=== PATIENT | male | born 1940 | race Caucasian/White ===

== ENCOUNTER 2017-11-04 08:24 | Emergency (ER) | payer OTHER ==
--- OUTSIDE RECORDS SUMMARY | 2017-11-04 08:26 | XMS REPORT | Clinical Summary ---
:1940 Author Organization [facility] Address [address] [place] [address] Care Team Providers Name Role Phone Christian Mcqueen MD Primary Care Provider Allergies Active Allergy Reactions Severity Noted Date Comments Penicillin V Potassium Hives 08/09/2017 Current Medications Prescription Sig. Disp. Refills Start End Date Status Date clopidogrel Take 75 mg by Active (PLAVIX) 75 mg mouth daily. tablet potassium chloride Take 10 mEq by Active (KLOR-CON) 20 mEq mouth daily. packet sertraline (ZOLOFT) Take 100 mg by Active 100 MG tablet mouth daily. metOLazone Take 5 mg by 08/18/19 Discontinued (ZAROXOLYN) 5 MG mouth once a 18 tablet week. furosemide (LASIX) Take 80 mg by 08/18/19 Discontinued 80 mg tablet mouth 2 (two) 18 times a day. traMADol (ULTRAM) Take 1 tablet (50 20 tablet 0 08/25/19 50 mg tablet mg total) by 8 18 mouth every 6 (six) hours as needed for moderate pain for up to 20 doses. minocycline Take 1 capsule 6 capsule 0 08/21/19 (MINOCIN) 100 MG (100 mg total) by 8 18 capsule mouth 2 (two) times a day for 6 doses. carvedilol (COREG) Take 1 tablet 60 tablet 0 09/18/19 6.25 MG tablet (6.25 mg total) 8 18 by mouth 2 (two) times a day for 30 days. lisinopril Take 1 tablet (5 30 tablet 0 09/19/19 (PRINIVIL,ZESTRIL) mg total) by 8 18 5 mg tablet mouth daily for 30 days. albuterol (ACCUNEB) Take 3 mL (2.5 mg 75 mL 12 09/18/19 2.5 mg /3 mL (0.083 total) by 8 18 %) nebulizer nebulization solution every 4 (four) hours as needed for shortness of breath for up to 30 days. torsemide (DEMADEX) Take 3 tablets 180 tablet 0 09/18/19 20 MG tablet (60 mg total) by 8 18 mouth 2 (two) times a day for 30 days. aspirin 81 mg Chew 1 tablet (81 30 tablet 0 09/19/19 chewable tablet mg total) daily 8 18 for 30 days. spironolactone Take 1 tablet (25 30 tablet 0 09/19/19 (ALDACTONE) 25 MG mg total) by 8 18 tablet mouth daily for 30 days. levothyroxine Take 1 tablet (75 30 tablet 0 09/19/19 (SYNTHROID, mcg total) by 8 18 LEVOXYL) 75 mcg mouth daily for tablet 30 days. Active Problems Problem Noted Date Bladder outlet obstruction 08/18/2017 CHF (congestive heart failure) 08/09/2017 Encounters Date Type Specialty Care Team Description 08/25/2017 Office Visit Cardiology Gene Jain Chronic systolic [place], OXYACETYLENE BURNER-C congestive heart failure (Primary Dx) 08/25/2017 Hospital Encounter Transplant Richar, Acute on chronic MD Pradeep systolic heart failure 08/23/2017 Telephone Cardiology Matheus Collier RN 08/18/2017 Patient Outreach Quality Ebony Pa RN 08/18/2017 Orders Only Cardiology Shandra Collier on chronic PADMAJA Carranza systolic heart failure (Primary Dx) 08/16/2017 Anesthesia Event Procedural Sarah Beth, Cardiology Bari Hernandez CRNA 08/16/2017 Procedure Pass Procedural Cardiology 08/16/2017 Surgery Procedural Kendal Navarro Ep aicd implant Cardiology MD Sofia single dual bi vent [[id number] (CPT)] 08/13/2017 Transcribe Orders Procedural Kendal Navarro Atrial Cardiology MD Sofia fibrillation, unspecified type (Primary Dx) 08/10/2017 Procedure Pass Procedural Cardiology 08/10/2017 Surgery Procedural Kendal Navarro Cv right heart cath Cardiology MD Sofia [[id number] (CPT)] 08/10/2017 Procedure Pass Procedural Cardiology 08/09/2017 - Hospital Encounter Cardiology Bryan Cruz Acute systolic 08/18/2017 MD Edwina congestive heart failure (Primary Dx) after 11/03/2016 Social History Tobacco Use Types Packs/Day Years Used Date Never Assessed Sex Assigned at Date Recorded Not on file Last Filed Vital Signs Vital Sign Reading Time Taken Blood Pressure 115/69 08/25/2017 12:37 PM [facility] Pulse 74 08/25/2017 12:37 PM [facility] Temperature 35.9 C (96.6 F) 08/25/2017 12:37 PM [facility] Respiratory Rate 18 08/25/2017 12:37 PM [facility] Oxygen Saturation 96% 08/18/2017 3:58 PM [facility] Inhaled Oxygen Concentration - - Weight 126 kg (277 lb 6.4 oz) 08/25/2017 12:37 PM [facility] Height 172.7 cm (5' 8") 08/25/2017 12:37 PM [facility] Body Mass Index 42.18 08/25/2017 12:37 PM [facility] Plan of Treatment Health Maintenance Due Date Last Done Comments SHINGRIX VACCINE (#1) 1991 ZOSTER VACCINE 2001 PNEUMOCOCCAL POLYSACCHARIDE VACCINE AGE 65 AND OVER 2006 PNEUMOCOCCAL-13 2006 INFLUENZA VACCINE 02/09/2018 Implants Implanted Type Area Renovator Machine Operator Device Expiration Model / Identifier Date Serial / Lot Lead Joy [place] Df4 - [id number] - [id number] Cardiac Pacing N/A: BRENDA ARIAS CRM 05/23/2019 [id number] / Implanted: Qty: 1 on 08/16/2017 by Kendal Navarro Jr., MD Leads or N/A YOVANI [id number] / Electrodes or [id number] Accessories Transvenous Icd Vigilant [facility] Df4 - [id number] Defibrillator N/A: B[place] D232 / Implanted: Qty: 1 on 08/16/2017 by Kendal Navarro Jr., MD ICD Devices N/A SCIENTIFIC- CRM / Procedures Procedure Name Priority Date/Time Associated Diagnosis Comments CONSULT CARDIAC Routine 08/17/2017 1:20 PM REHAB PHASE 1 [facility] EP AICD IMPLANT Routine 08/16/2017 4:21 PM Results for this SINGLE DUAL BI VENT [facility] procedure are in the results section. CV RIGHT HEART CATH Routine 08/10/2017 3:09 PM Results for this [facility] procedure are in the results section. after 11/03/2016 Results Estimated GFR (08/25/2017 11:50 AM)Only the most recent of10 resultswithin the time period is included. Component Value Ref Range GFR Non Af Amer 73 mL/min/1.73 m2 GFR Af Amer 88 mL/min/1.73 m2 Comment: Chronic kidney disease: <60 mL/min/1.73m2 Kidney failure: <15 mL/min/1.73m2 The estimated GFR is calculated from the IDMS-traceable Modification of Diet in Renal Disease Equation. The accuracy of the calculation is poor when the creatinine is normal. Calculated values >90 mL/min/1.73m2 are not reported. This equation has not been validated in children (<18 years), women, the elderly (>70 years), or ethnic groups other than Caucasians and Americans. Specimen Performing Laboratory Plasma specimen [facility] DEPARTMENT OF PATHOLOGY AND GENOMIC MEDICINE [address] [place] [address] B natriuretic peptide (08/25/2017 11:50 AM)Only the most recent of4 resultswithin the time period is included. Component Value Ref Range BNP 558 (H) 0 - 100 pg/mL Specimen Performing Laboratory Blood [facility] OF PATHOLOGY AND [address] [address] Magnesium level (08/25/2017 11:50 AM)Only the most recent of7 resultswithin the time period is included. Component Value Ref Range Magnesium 2.1 1.6 - 2.4 mg/dL Specimen Performing Laboratory Plasma specimen [facility] DEPARTMENT OF PATHOLOGY AND [facility] MEDICINE [address] [place] [address] Basic metabolic panel (08/25/2017 11:50 AM)Only the most recent of9 resultswithin the time period is included. Component Value Ref Range Sodium 139 135 - 148 mEq/L Potassium 4.1 3.5 - 5.0 mEq/L Chloride 96 (L) 98 - 112 mEq/L CO2 33 (H) 24 - 31 mEq/L Anion gap 10 7 - 15 mEq/L Comment: Starting from October , anion gap calculation no longer incorporates potassium. Please note the change. BUN 25 (H) 8 - 23 mg/dL Creatinine 1.0 0.7 - 1.2 mg/dL Glucose 89 65 - 99 mg/dL Calcium 9.4 8.8 - 10.2 mg/dL Specimen Performing Laboratory Plasma specimen [facility] DEPARTMENT OF PATHOLOGY AND GENOMIC MEDICINE [address] [place] [id number] ECG Pre/Post Op-Tomorrow (08/16/2017 6:23 PM)Only the most recent of2 resultswithin the time period is included. Component Value Ref Range Ventricular rate 64 Atrial rate 71 QRSD interval 106 QT interval 452 QTC interval 466 QRS axis 1 67 T wave axis 162 EKG impression Atrial fibrillation with premature ventricular or aberrantly conducted complexes-Possible Inferior infarct (cited on or before 31-OCT-2014)-Nonspecific T wave abnormality- Specimen Performing Laboratory [facility] MUSE [address] [place] [address] XR Chest 1 Vw Portable (08/16/2017 5:59 PM)Only the most recent of2 resultswithin the time period is included. Specimen Performing Laboratory [facility] [address] [place] [address] Narrative EXAMINATION: Portable chest x-ray CLINICAL HISTORY:Pneumothorax COMPARISON: Most recent available chest x-ray. The heart is moderately enlarged. ICD electrode is in stable position. There are degenerative changes in the dorsal spine. IMPRESSION: 1.There is no pneumothorax. 2.No pleural fluid. 3.There is mild vascular congestion with no signs of pulmonary edema. [id number] Procedure Note Interface, Radiology Results Incoming - 08/16/2017 6:11 PM [facility] EXAMINATION: Portable chest x-ray CLINICAL HISTORY: Pneumothorax COMPARISON: Most recent available chest x-ray. The heart is moderately enlarged. ICD electrode is in stable position. There are degenerative changes in the dorsal spine. IMPRESSION: 1. There is no pneumothorax. 2. No pleural fluid. 3. There is mild vascular congestion with no signs of pulmonary edema. [id number] Cv electrophysiology procedure (08/16/2017 4:21 PM) Specimen Performing Laboratory [facility] [address] [place] [id number] Narrative TITLE: ICD implantation. PREOPERATIVE DIAGNOSES: 1.Nonischemic dilated cardiomyopathy. 2.Congestive heart failure, NYHA class III. 3.Morbid obesity. POSTOPERATIVE DIAGNOSES: 1.Nonischemic dilated cardiomyopathy. 2.Congestive heart failure, NYHA class III. 3.Morbid obesity. PROCEDURES PERFORMED: 1.Monitored anesthesia care. 2.Single chamber defibrillator placement. BRIEF HISTORY AND CLINICAL BACKGROUND: This is a 77-year-old man with the aforementioned medical problem.He was admitted to the hospital last week because of congestive heart failure and significant volume overload.Ejection fraction is 30-35% with moderate tricuspid regurgitation and secondary pulmonary hypertension.His congestive heart failure has been managed with intravenous milrinone and intravenous Lasix. He has last over 20 pounds since admission on August 09 and he is substantially feeling better.He comes now for a single chamber defibrillator placement. PROCEDURE: The patient was taken to the Electrophysiology Laboratory in the postabsorptive-nonsedated state and was placed on a fluoroscopy table. The position of the external defibrillation pads over the heart was confirmed using fluoroscopy. The chest was prepped and draped in the usual sterile fashion. Local anesthesia was achieved with 1% lidocaine.Intravenous conscious sedation using intravenous Versed, Fentanyl, and Phenergan, was provided as necessary. An upper extremity venogram was performed, and during the venogram, access to the axillary vein was achieved.A soft-tipped J-wire was advanced into the venous system.A pocket was then made below the plane of the pectoralis fascia using a scalpel, cautery, and blunt dissection.Using the [id number] technique and an introducer sheath, a defibrillation lead was advanced to the right ventricular apex and the fixation mechanism was deployed. Pacing and sensing thresholds were then evaluated.After they were found to be adequate, maximum output pacing was performed to test for diaphragmatic stimulation, and none was seen. The lead was sutured to the pectoral muscle using 0 Ethibond sutures tied over the lead collar.The pocket was visually, manually, and radiographically, inspected to ensure there were no gauze or sponges in the pocket.The pocket was then washed using an antibiotic solution. After washing was complete, gloves were changed and fresh sterile drapes were placed and a defibrillator was unpacked.The defibrillator was then attached to the lead and the set screws were tightened and the leads were gently pulled upon to ensure they were affixed within the device header.The generator and lead slack were placed into the pocket.The device was sutured to the muscle using a 0-Ethibond suture through the suture hole in the header. Defibrillation threshold testing was then performed.After the Defibrillation Safety Threshold was found to be satisfactory, the incision was closed in layers using running 0-Vicryl suture for 2 layers followed by josseline and skin adhesive. COMPLICATIONS: None. FINDINGS: 1.The right ventricular apical defibrillation lead is a [employer] Joy 4-site G, model 0296, serial #[id number].Measured R-wave 5.3 millivolt, pacing threshold 0.6 volt, current 1.0 mA, impedance 664 ohms. 2.Defibrillator is a [employer] Vigilant EL ICD model Delta D232, serial #[id number]. 3.Defibrillator safety threshold testing not performed due to inability to anticoagulate because of hematuria. CONCLUSIONS: Successful ICD placement. RECOMMENDATIONS: Once he can accept oral anticoagulation for a sufficient duration, we will bring him back for outpatient DFT assessment. Potassium level (08/16/2017 9:16 AM)Only the most recent of3 resultswithin the time period is included. Component Value Ref Range Potassium 4.0 3.5 - 5.0 mEq/L Specimen Performing Laboratory Plasma specimen [facility] DEPARTMENT OF PATHOLOGY AND GENOMIC MEDICINE [address] [place] [address] CBC with platelet and differential (08/16/2017 6:25 AM)Only the most recent of7 resultswithin the time period is included. Component Value Ref Range WBC 5.87 4.50 - 11.00 k/uL RBC 3.45 (L) 4.40 - 6.00 m/uL HGB 10.3 (L) 14.0 - 18.0 g/dL HCT 31.9 (L) 41.0 - 51.0 % MCV 92.5 82.0 - 100.0 fL MCH 29.9 27.0 - 34.0 pg MCHC 32.3 31.0 - 37.0 g/dL RDW - SD 55.8 (H) 37.0 - 55.0 fL MPV 12.1 8.8 - 13.2 fL Platelet count 92 (L) 150 - 400 k/uL Nucleated RBC 0.00 /100 WBC Neutrophils 68.7 39.0 - 69.0 % Lymphocytes 13.3 (L) 25.0 - 45.0 % Monocytes 9.7 0.0 - 10.0 % Eosinophils 6.8 (H) 0.0 - 5.0 % Basophils 1.2 (H) 0.0 - 1.0 % Immature granulocytes 0.3Comment: "Immature granulocytes" 0.0 - 1.0 % (promyelocytes, myelocytes, metamyelocytes) Specimen Performing Laboratory Blood [facility] DEPARTMENT OF PATHOLOGY AND [facility] MEDICINE [address] [place] [address] Phosphorus level (08/14/2017 4:00 PM)Only the most recent of4 resultswithin the time period is included. Component Value Ref Range Phosphorus 2.9 2.4 - 4.5 mg/dL Specimen Performing Laboratory Plasma specimen [facility] DEPARTMENT OF PATHOLOGY AND [address] [address] ECG 12 lead (08/12/2017 12:15 PM) Component Value Ref Range Ventricular rate 80 Atrial rate 66 QRSD interval 114 QT interval 506 QTC interval 583 QRS axis 1 61 T wave axis 171 EKG impression Accelerated Junctional rhythm with frequent premature ventricular complexes-Possible underlying atrial fibrillation-Possible Inferior infarct (cited on or before 31-OCT-2014)-ST & T wave abnormality , consider anterolateral ischemia-Prolonged QT-Abnormal ECG-In automated comparison with ECG of 01-NOV-2014 08:17,-QT has lengthened- Specimen Performing Laboratory [facility] MUSE [address] [place] [address] Cv labourers procedure (08/10/2017 3:09 PM) Specimen Performing Laboratory [facility] [address] [place] [address] Narrative Other significant cardiac findings of note: RA 29/30 mean 25 RV 61/15 PA 61/30 mean 40 PCWP 31/36 mean 30 Cardiac output 8.4/Cardiac Index 3.5 On milrinone. Right heart filling pressure is moderately elevated. Pulmonary hypertension is moderate. Wedge pressure is moderate. Cardiac output is increased. Biopsy performed via right internal jugular vein. Elevated PCWP and rt sided pressures Continue IV Milrinone and IV Lasix Partial thromboplastin time, activated (08/09/2017 5:05 PM) Component Value Ref Range PTT 36.0 23.0 - 36.0 sec Comment: PTT therapeutic range for unfractionated heparin is 61.0-112.0 seconds which corresponds to Anti-Xa 0.3-0.7 U/ml. Specimen Performing Laboratory Blood [facility] DEPARTMENT PATHOLOGY [address] [address] Prothrombin time with INR (08/09/2017 5:05 PM) Component Value Ref Range Prothrombin time 17.7 (H) 12.0 - 15.0 sec INR 1.4 Comment: The International Normalized Ratio (INR) is a therapeutic monitoring tool for patients who are stable on oral anticoagulant therapy. An INR of 2.0-3.0 is suggested for deep vein thrombosis/pulmonary embolism. Specimen Performing Laboratory Blood [facility] PATHOLOGY [address] [address] CBC hemogram (08/09/2017 5:05 PM) Component Value Ref Range WBC 7.03 4.50 - 11.00 k/uL RBC 3.68 (L) 4.40 - 6.00 m/uL HGB 11.0 (L) 14.0 - 18.0 g/dL HCT 34.5 (L) 41.0 - 51.0 % MCV 93.8 82.0 - 100.0 fL MCH 29.9 27.0 - 34.0 pg MCHC 31.9 31.0 - 37.0 g/dL RDW - SD 58.0 (H) 37.0 - 55.0 fL MPV 11.8 8.8 - 13.2 fL Platelet count 110 (L) 150 - 400 k/uL Nucleated RBC 0.00 /100 WBC Specimen Performing Laboratory Blood [facility] DEPARTMENT OF PATHOLOGY AND [address] [address] Thyroid stimulating hormone (08/09/2017 5:05 PM) Component Value Ref Range TSH 13.20 (H) 0.27 - 4.20 uIU/mL Specimen Performing Laboratory Plasma specimen [facility] DEPARTMENT OF PATHOLOGY AND [address] [address] T4, free (08/09/2017 5:05 PM) Component Value Ref Range T4, free 0.9 0.9 - 1.7 ng/dL Specimen Performing Laboratory Plasma specimen [facility] DEPARTMENT OF PATHOLOGY AND [address] [address] Comprehensive metabolic panel (08/09/2017 5:05 PM) Component Value Ref Range Sodium 141 135 - 148 mEq/L Potassium 3.6 3.5 - 5.0 mEq/L Chloride 97 (L) 98 - 112 mEq/L CO2 33 (H) 24 - 31 mEq/L Anion gap 11 7 - 15 mEq/L Comment: Starting from October , anion gap calculation no longer incorporates potassium. Please note the change. BUN 24 (H) 8 - 23 mg/dL Creatinine 1.2 0.7 - 1.2 mg/dL Glucose 132 (H) 65 - 99 mg/dL Calcium 9.9 8.8 - 10.2 mg/dL Protein 7.4 6.3 - 8.3 g/dL Comment: 4.6-7.0 g/dL 1 week 4.4-7.6 g/dL 7 months-1year5.1-7.3 g/dL 1-2 years5.6-7.5 g/dL >3 years6.0-8.0 g/dL 18-150 6.3-8.3 g/dL Albumin 3.1 (L) 3.5 - 5.0 g/dL A/G ratio 0.7 0.7 - 3.8 Alkaline phosphatase 69 40 - 129 U/L AST 24 10 - 50 U/L ALT 13 5 - 50 U/L Total bilirubin 1.0 0.0 - 1.2 mg/dL Specimen Performing Laboratory Plasma specimen [facility] DEPARTMENT OF PATHOLOGY AND GENOMIC MEDICINE [address] [place] [address] after 11/03/2016 Insurance Payer Benefit Plan / Group Subscriber ID Type Phone Address [facility] [employer] MEDICARE PPO/PFFS/ERS MCR xxxxxxxxx PPO Home: [phone] [place], [place] [id number]
--- NOTE | 2017-11-04 09:34 | RAD REPORT ---
EXAM DESCRIPTION: CT - Thorax Wo Con CLINICAL HISTORY: Fall, right-sided chest pain. COMPARISON: None FINDINGS: The lungs are clear. No pleural thickening or pleural effusion. No pneumothorax. Cardiomeg mark is present with pacemaker wires noted. No axillary, mediastinal or hilar adenopathy. No displaced rib fractures are seen. Mild ascites is noted in the upper abdomen. All CT scans are performed using dose optimization technique as appropriate and may include automated exposure control or mA/KV adjustment according to patient size. IMPRESSION: No acute intrathoracic finding. Mild ascites upper abdomen.
--- NOTE | 2017-11-04 09:43 | ER ---
Nurse's Notes [facility] Name: Atul Burton Sr Age: 77 yrs Sex: Male : 1940 Arrival Date: 11/04/2017 Time: 08: Bed 15 Private MD: Christian Valladares R Diagnosis: Contusion of thorax Presentation: 11/04 08:43 Presenting complaint: Patient states: R lateral aspect of chest wall pain that began 5 ss days ago when patient tripped, and fell from a standing position. Transition of care: patient was not received from another setting of care. Onset of symptoms was October 30, 2017. Initial Sepsis Screen: Does the patient meet any 2 criteria? No. Patient's initial sepsis screen is negative. Does the patient have a suspected source of infection? No. Patient's initial sepsis screen is negative. Care prior to arrival: None. 08:43 Method Of Arrival: Ambulatory ss 08:43 Acuity: KASI 4 ss Historical: - Allergies: 08:38 PENICILLINS; rb1 - Home Meds: 08:38 Albuterol-Ipratropium Inhl 2 puffs 4 times per day [Active]; aspirin 81 mg Oral chew 1 rb1 tab once daily [Active]; furosemide 80 mg Oral tab 1 tab 2 times per day [Active]; Plavix 75 mg Oral tab 1 tab once daily [Active]; potassium chloride 10 mEq oral TbER [Active]; Zoloft 100 mg Oral tab 1 tab once daily [Active]; torsemide 20 mg oral tab 3 tab twice a day [Active]; spironolactone 25 mg Oral tab 1 tab once daily [Active]; carvedilol 6.25 mg oral tab 1 tab 2 times per day [Active]; metolazone 5 mg oral tab 1 tab weekly [Active]; - PMHx: 08:38 Depression; Anxiety; Hypertension; rb1 - PSHx: 08:38 triple bypas; defibrillator; right knee; rb1 - Immunization history:: Adult Immunizations up to date. - Social history:: Smoking status: Patient/guardian denies using tobacco. Screenin:38 Abuse screen: Denies threats or abuse. Nutritional screening: No deficits noted. rb1 Tuberculosis screening: No symptoms or risk factors identified. Fall Risk Fall in past 12 months (25 points). No secondary diagnosis (0 pts). No IV (0 pts). Ambulatory Aid- None/Bed Rest/Nurse Assist (0 pts). Gait- Normal/Bed Rest/Wheelchair (0 pts) Mental Status- Oriented to own ability (0 pts). Total Marino Fall Scale indicates Low Risk Score (25-44 pts). Fall prevention measures have been instituted. Side Rails Up X 2 Placed close to Nursing Station 1:1 attendant Assigned to Pt. Frequent Obs/Assesments occuring Family Present and informed to notify staff if they need to leave bedside As available Patient and Family Educated on Fall Prevention Program and strategies. Assessment: 08:38 General: Appears uncomfortable, obese, Behavior is calm, cooperative, Denies fever, rb1 feeling ill. Pain: Complains of pain in right side of ribs Pain currently is 2 out of 10 on a pain scale. Pain began Wednesday. Neuro: Level of Consciousness is awake, alert, obeys commands, Oriented to person, place, time, situation. Cardiovascular: Capillary refill < 3 seconds is brisk in bilateral fingers. Respiratory: Airway is patent Respiratory effort is even, unlabored, Respiratory pattern is regular, symmetrical. GI: No signs and/or symptoms were reported involving the gastrointestinal system. : No signs and/or symptoms were reported regarding the genitourinary system. Derm: Bruising that is dark purple, on right side of ribs. Musculoskeletal: Range of motion: intact in all extremities. Vital Signs: 08:38 BP 132 / 77; Pulse 75; Resp 20; Temp 97.7(O); Pulse Ox 97% on R/A; Weight 127.01 kg rb1 (R); Height 5 ft. 9 in. (175.26 cm) (R); Pain 2/10; 08:38 Body Mass Index 41.35 (127.01 kg, 175.26 cm) rb1 ED Course: 08:26 Patient arrived in ED. as 08:26 Christian Valladares MD is Private Physician. as 08:38 Esperanza Haque, PADMAJA is Primary Nurse. rb1 08:38 Patient has correct armband on for positive identification. Bed in low position. Call rb1 light in reach. Side rails up X 1. Pulse ox on. NIBP on. Warm blanket given. 08:39 South Ross MD is Attending Physician. gs 08:43 Arm band placed on right wrist. ss 08:44 Triage completed. ss 09:12 CT Chest Wo Con In Process Unspecified. EDMS 09:13 CT completed. Patient tolerated procedure well. Patient moved to CT via wheelchair. jg1 Patient moved back from CT. 09:56 No provider procedures requiring assistance completed. Patient did not have IV access sv during this emergency room visit. Administered Medications: No medications were administered Outcome: 09:42 Discharge ordered by . 09:56 Discharged to home ambulatory. sv 09:56 Condition: stable 09:56 Discharge instructions given to patient, Instructed on discharge instructions, follow up and referral plans. Demonstrated understanding of instructions, follow-up care. 09:56 Patient left the ED. sv Signatures: Dispatcher [employer] EDMS Fabiana Blanco RN RN sv Rekha Hernandez jHaley White Shelby, RN RN ss Barber, Rebecca, PADMAJA RN rb1 South Ross MD MD
--- NOTE | 2017-11-04 09:43 | EDPHYS ---
Physician Documentation [facility] Name: Atul Burton Sr Age: 77 yrs Sex: Male : 1940 Arrival Date: 11/04/2017 Time: : Bed 15 Private MD: Christian Valladares R ED Physician [place] HPI: 11/04 09:14 This 77 yrs old Male presents to ER via Ambulatory with complaints of Rib gs Injury- 10/30. 09:14 The patient or guardian reports chest pain that is located primarily in the anterior gs chest wall. Onset: The symptoms/episode began/occurred 2 day(s) ago. The pain does not radiate. Associated signs and symptoms: Pertinent negatives: abdominal pain, palpitations, shortness of breath, syncope. The chest pain is described as sharp. Duration: The patient or guardian reports a single episode, that is still ongoing. Modifying factors: the symptoms are aggravated by movement, twisting torso. Severity of pain: At its worst the pain was moderate in the emergency department the pain is unchanged. The patient has not experienced similar symptoms in the past. Historical: - Allergies: 08:38 PENICILLINS; rb1 - Home Meds: 08:38 Albuterol-Ipratropium Inhl 2 puffs 4 times per day [Active]; aspirin 81 mg Oral chew 1 rb1 tab once daily [Active]; furosemide 80 mg Oral tab 1 tab 2 times per day [Active]; Plavix 75 mg Oral tab 1 tab once daily [Active]; potassium chloride 10 mEq oral TbER [Active]; Zoloft 100 mg Oral tab 1 tab once daily [Active]; torsemide 20 mg oral tab 3 tab twice a day [Active]; spironolactone 25 mg Oral tab 1 tab once daily [Active]; carvedilol 6.25 mg oral tab 1 tab 2 times per day [Active]; metolazone 5 mg oral tab 1 tab weekly [Active]; - PMHx: 08:38 Depression; Anxiety; Hypertension; rb1 - PSHx: 08:38 triple bypas; defibrillator; right knee; rb1 - Immunization history:: Adult Immunizations up to date. - Social history:: Smoking status: Patient/guardian denies using tobacco. ROS: 09:14 All other systems are negative. gs Exam: 09:14 Head/Face: Normocephalic, atraumatic. Eyes: Pupils equal round and reactive to light, gs extra-ocular motions intact. Lids and lashes normal. Conjunctiva and sclera are non-icteric and not injected. Cornea within normal limits. Periorbital areas with no swelling, redness, or edema. ENT: Nares patent. No nasal discharge, no septal abnormalities noted. Tympanic membranes are normal and external auditory canals are clear. Oropharynx with no redness, swelling, or masses, exudates, or evidence of obstruction, uvula midline. Mucous membranes moist. Neck: Trachea midline, no thyromegaly or masses palpated, and no cervical lymphadenopathy. Supple, full range of motion without nuchal rigidity, or vertebral point tenderness. No Meningismus. Cardiovascular: Regular rate and rhythm with a normal S1 and S2. No gallops, murmurs, or rubs. Normal PMI, no JVD. No pulse deficits. Respiratory: Lungs have equal breath sounds bilaterally, clear to auscultation and percussion. No rales, rhonchi or wheezes noted. No increased work of breathing, no retractions or nasal flaring. Abdomen/GI: Soft, non-tender, with normal bowel sounds. No distension or tympany. No guarding or rebound. No evidence of tenderness throughout. Back: No spinal tenderness. No costovertebral tenderness. Full range of motion. Skin: Warm, dry with normal turgor. Normal color with no rashes, no lesions, and no evidence of cellulitis. MS/ Extremity: Pulses equal, no cyanosis. Neurovascular intact. Full, normal range of motion. Neuro: Awake and alert, GCS 15, oriented to person, place, time, and situation. Cranial nerves II-XII grossly intact. Motor strength 5/5 in all extremities. Sensory grossly intact. Cerebellar exam normal. Normal gait. 09:14 Constitutional: The patient appears alert, awake. 09:14 Chest/axilla: Inspection: ecchymosis, that is moderate, of the right lateral anterior chest Palpation: tenderness, that is moderate, that totally reproduces the patient's complaints. Vital Signs: 08:38 BP 132 / 77; Pulse 75; Resp 20; Temp 97.7(O); Pulse Ox 97% on R/A; Weight 127.01 kg rb1 (R); Height 5 ft. 9 in. (175.26 cm) (R); Pain 08/21; 08:38 Body Mass Index 41.35 (127.01 kg, 175.26 cm) rb1 MDM: 08:51 Patient medically screened. 09:14 Differential diagnosis: Chest Wall Contusion Chest Wall Injury Rib Fracture. Data gs reviewed: vital signs, nurses notes. Response to treatment: the patient's symptoms have mildly improved after treatment. 11/04 08:52 Order name: CT Chest Wo Con; Complete Time: 09:40 gs Administered Medications: No medications were administered Disposition: 11/04/17 09:42 Discharged to Home. Impression: Contusion of thorax. - Condition is Stable. - Discharge Instructions: Chest Contusion. - Medication Reconciliation Form, Thank You Letter, Antibiotic Education, Prescription Opioid Use form. - Follow up: Private Physician; When: 2 - 3 days; Reason: Re-evaluation by your physician. Signatures: Dispatcher [employer] Fabiana Crockett RN RN sv Smirch, Shelby, RN RN ss Barber, Rebecca, RN RN rb1 [place] MD MD
[2017-11-04 10:04] VITALS: BP 132/77; TEMP 97.7; O2SAT 97
== END 2017-11-04 09:56 | disposition home or self-care (01) ==
LOC: ER 08:24
DX: S20.20XA Contusion of thorax, unspecified, initial encounter (principal); W01.0XXA Fall on same level from slipping, tripping and stumbling without subsequent striking against object, initial encounter; Y93.9 Activity, unspecified; Y92.9 Unspecified place or not applicable; I10 Essential (primary) hypertension; F41.9 Anxiety disorder, unspecified; F32.9 Major depressive disorder, single episode, unspecified; Z88.0 Allergy status to penicillin; Z79.01 Long term (current) use of anticoagulants; Z79.82 Long term (current) use of aspirin
CPT/HCPCS: 71250; 99284

== ENCOUNTER 2018-01-20 13:14 | Observation (INO) | payer OTHER ==
--- OUTSIDE RECORDS SUMMARY | 2018-01-20 13:48 | XMS REPORT | Clinical Summary ---
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[place], [employer] MAIL CLERK-C congestive heart failure (Primary Dx) 08/25/2017 Hospital [...] Cardiology MD Sofia single dual bi vent [[id number] (CPT)] 08/13/2017 Transcribe Orders Procedural Kendal Navarro Atrial Cardiology MD Sofia fibrillation, unspecified type (Primary Dx) 08/10/2017 Procedure Pass Procedural Cardiology 08/10/2017 Surgery Procedural Kendal Navarro Cv right heart cath Cardiology MD Sofia [[id number] (CPT)] 08/10/2017 Procedure Pass Procedural Cardiology 08/09/2017 - Hospital Encounter Cardiology Bryan Cruz Acute systolic 08/18/2017 MD Edwina congestive heart failure (Primary Dx) after 01/19/2017 Social History Tobacco Use Types Packs/Day Years Used Date Never Assessed Sex Assigned at Date Recorded Not on file Last Filed Vital Signs Vital Sign Reading Time Taken Blood Pressure 115/69 08/25/2017 12:37 PM [employer] Pulse 74 08/25/2017 12:37 PM [employer] Temperature 35.9 C (96.6 F) 08/25/2017 12:37 PM [employer] Respiratory Rate 18 08/25/2017 12:37 PM [employer] Oxygen Saturation 96% 08/18/2017 3:58 PM [employer] Inhaled Oxygen Concentration - - Weight 126 kg (277 lb 6.4 oz) 08/25/2017 12:37 PM [employer] Height 172.7 cm (5' 8") 08/25/2017 12:37 PM [employer] Body Mass Index 42.18 08/25/2017 12:37 PM [employer] Plan of Treatment Health Maintenance Due Date Last Done Comments SHINGRIX VACCINE (#1) 1991 ZOSTER VACCINE 2001 PNEUMOCOCCAL POLYSACCHARIDE VACCINE AGE 65 AND OVER 2006 PNEUMOCOCCAL-13 2006 INFLUENZA VACCINE 02/09/2018 Implants Implanted Type Area Event Planning Intern Device Expiration Model / Identifier Date Serial / Lot Lead [place] Df4 - [id number] - [id number] Cardiac Pacing N/A: BRENDA [employer] 05/23/2019 [id number] / Implanted: Qty: 1 on 08/16/2017 by Kendal Navarro Jr., MD Leads or N/A YOVANI [id number] / Electrodes or [id number] Accessories Transvenous Icd Vigilant [facility] Df4 - [id number] Defibrillator N/A: BOSTON [id number] / Implanted: Qty: 1 on 08/16/2017 by Kendal Navarro Jr., MD ICD Devices N/A SCIENTIFIC- CRM / Procedures Procedure Name Priority Date/Time Associated Comments Diagnosis ESTIMATED GFR STAT 08/25/2017 11:50 Results for this AM [employer] procedure are in the results section. MAGNESIUM LEVEL STAT 08/25/2017 11:50 Acute on chronic Results for this AM [employer] systolic heart procedure are in failure the results section. B NATRIURETIC PEPTIDE STAT 08/25/2017 11:50 Acute on chronic Results for this AM [employer] systolic heart procedure are in failure the results section. BASIC METABOLIC PANEL STAT 08/25/2017 11:50 Acute on chronic Results for this AM [employer] systolic heart procedure are in failure the results section. CONSULT CARDIAC REHAB Routine 08/17/2017 1:20 PHASE 1 PM [employer] ESTIMATED GFR Routine 08/17/2017 4:50 Results for this AM [employer] procedure are in the results section. B NATRIURETIC PEPTIDE Routine 08/17/2017 4:50 Results for this AM [employer] procedure are in the results section. MAGNESIUM LEVEL Routine 08/17/2017 4:50 Results for this AM [employer] procedure are in the results section. BASIC METABOLIC PANEL Routine 08/17/2017 4:50 Results for this AM [employer] procedure are in the results section. ECG PRE/POST OP Routine 08/16/2017 6:23 Results for this PM [employer] procedure are in the results section. XR CHEST 1 VW PORTABLE Routine 08/16/2017 5:59 Results for this PM [employer] procedure are in the results section. EP AICD IMPLANT SINGLE Routine 08/16/2017 4:21 Results for this DUAL BI VENT PM [employer] procedure are in the results section. ECG PRE/POST OP STAT 08/16/2017 2:53 Results for this PM [employer] procedure are in the results section. POTASSIUM LEVEL Routine 08/16/2017 9:16 Results for this AM [employer] procedure are in the results section. HC COMPLETE BLD COUNT Routine 08/16/2017 6:25 Results for this W/AUTO DIFF AM [employer] procedure are in the results section. ESTIMATED GFR Routine 08/16/2017 4:00 Results for this AM [employer] procedure are in the results section. MAGNESIUM LEVEL Routine 08/16/2017 4:00 Results for this AM [employer] procedure are in the results section. BASIC METABOLIC PANEL Routine 08/16/2017 4:00 Results for this AM [employer] procedure are in the results section. HC COMPLETE BLD COUNT Routine 08/15/2017 5:14 Results for this W/AUTO DIFF AM [employer] procedure are in the results section. B NATRIURETIC PEPTIDE Routine 08/15/2017 5:11 Results for this AM [employer] procedure are in the results section. ESTIMATED GFR Routine 08/15/2017 4:00 Results for this AM [employer] procedure are in the results section. MAGNESIUM LEVEL Routine 08/15/2017 4:00 Results for this AM [employer] procedure are in the results section. BASIC METABOLIC PANEL Routine 08/15/2017 4:00 Results for this AM [employer] procedure are in the results section. PHOSPHORUS LEVEL Timed 08/14/2017 4:00 Results for this PM [employer] procedure are in the results section. POTASSIUM LEVEL Timed 08/14/2017 4:00 Results for this PM [employer] procedure are in the results section. HC COMPLETE BLD COUNT Routine 08/14/2017 5:30 Results for this W/AUTO DIFF AM [employer] procedure are in the results section. ESTIMATED GFR Routine 08/14/2017 4:00 Results for this AM [employer] procedure are in the results section. PHOSPHORUS LEVEL Routine 08/14/2017 4:00 Results for this AM [employer] procedure are in the results section. MAGNESIUM LEVEL Routine 08/14/2017 4:00 Results for this AM [employer] procedure are in the results section. BASIC METABOLIC PANEL Routine 08/14/2017 4:00 Results for this AM [employer] procedure are in the results section. HC COMPLETE BLD COUNT Routine 08/13/2017 5:25 Results for this W/AUTO DIFF AM [employer] procedure are in the results section. ESTIMATED GFR Routine 08/13/2017 4:00 Results for this AM [employer] procedure are in the results section. PHOSPHORUS LEVEL Routine 08/13/2017 4:00 Results for this AM [employer] procedure are in the results section. MAGNESIUM LEVEL Routine 08/13/2017 4:00 Results for this AM [employer] procedure are in the results section. BASIC METABOLIC PANEL Routine 08/13/2017 4:00 Results for this AM [employer] procedure are in the results section. ECG 12-LEAD Routine 08/12/2017 12:15 Results for this PM [employer] procedure are in the results section. HC COMPLETE BLD COUNT Routine 08/12/2017 5:18 Results for this W/AUTO DIFF AM [employer] procedure are in the results section. ESTIMATED GFR Routine 08/12/2017 4:00 Results for this AM [employer] procedure are in the results section. BASIC METABOLIC PANEL Routine 08/12/2017 4:00 Results for this AM [employer] procedure are in the results section. POTASSIUM LEVEL Routine 08/11/2017 3:55 Results for this PM [employer] procedure are in the results section. HC COMPLETE BLD COUNT Routine 08/11/2017 5:58 Results for this W/AUTO DIFF AM [employer] procedure are in the results section. ESTIMATED GFR Routine 08/11/2017 5:58 Results for this AM [employer] procedure are in the results section. BASIC METABOLIC PANEL Routine 08/11/2017 5:58 Results for this AM [employer] procedure are in the results section. CV RIGHT HEART CATH Routine 08/10/2017 3:09 Results for this PM [employer] procedure are in the results section. HC COMPLETE BLD COUNT Routine 08/10/2017 5:30 Results for this W/AUTO DIFF AM [employer] procedure are in the results section. ESTIMATED GFR Routine 08/10/2017 4:00 Results for this AM [employer] procedure are in the results section. PHOSPHORUS LEVEL Routine 08/10/2017 4:00 Results for this AM [employer] procedure are in the results section. MAGNESIUM LEVEL Routine 08/10/2017 4:00 Results for this AM [employer] procedure are in the results section. BASIC METABOLIC PANEL Routine 08/10/2017 4:00 Results for this AM [employer] procedure are in the results section. XR CHEST 1 VW PORTABLE Routine 08/09/2017 8:40 Results for this PM [employer] procedure are in the results section. PROTHROMBIN TIME WITH Routine 08/09/2017 5:05 Results for this INR PM [employer] procedure are in the results section. PARTIAL THROMBOPLASTIN Routine 08/09/2017 5:05 Results for this TIME (PTT) PM [employer] procedure are in the results section. ESTIMATED GFR Routine 08/09/2017 5:05 Results for this PM [employer] procedure are in the results section. CBC HEMOGRAM Routine 08/09/2017 5:05 Results for this PM [employer] procedure are in the results section. THYROID STIMULATING Routine 08/09/2017 5:05 Results for this HORMONE PM [employer] procedure are in the results section. T4, FREE Routine 08/09/2017 5:05 Results for this PM [employer] procedure are in the results section. COMPREHENSIVE METABOLIC Routine 08/09/2017 5:05 Results for this PANEL PM [employer] procedure are in the results section. B NATRIURETIC PEPTIDE Routine 08/09/2017 5:05 Results for this PM [employer] procedure are in the results section. after 01/19/2017 Results Estimated GFR (08/25/2017 11:50 AM)Only the most recent of10 resultswithin the time period is included. GFR Non Af Amer 73 mL/min/1.73 m2 [facility] DEPARTMENT OF PATHOLOGY AND GENOMIC MEDICINE GFR Af Amer 88 mL/min/1.73 m2 [facility] DEPARTMENT OF Comment: PATHOLOGY AND GENOMIC Chronic kidney disease: <60 mL/min/1.73m2 MEDICINE Kidney failure: <15 mL/min/1.73m2 The estimated GFR is calculated from the IDMS-traceable Modification of Diet in Renal Disease Equation. The accuracy of the calculation is poor when the creatinine is normal. Calculated values >90 mL/min/1.73m2 are not reported. This equation has not been validated in children (<18 years), women, the elderly (>70 years), or ethnic groups other than Caucasians and Americans. Specimen Plasma specimen Performing Organization Address City/[facility] Phone Number [facility] DEPARTMENT OF PATHOLOGY AND [address] [place] [address] B natriuretic peptide (08/25/2017 11:50 AM)Only the most recent of4 resultswithin the time period is included. BNP 558 (H) 0 - 100 pg/mL [facility] DEPARTMENT OF PATHOLOGY AND [email or web address] [facility] Specimen Blood Performing Organization Address [facility] Phone Number [facility] DEPARTMENT OF [facility] AND [address] [place] [address] Magnesium level (08/25/2017 11:50 AM)Only the most recent of7 resultswithin the time period is included. Magnesium 2.1 1.6 - 2.4 mg/dL [facility] DEPARTMENT OF PATHOLOGY AND [email or web address] MEDICINE Specimen Plasma specimen Performing Organization Address [facility] Phone Number [facility] DEPARTMENT OF PATHOLOGY AND [address] [place] [address] Basic metabolic panel (08/25/2017 11:50 AM)Only the most recent of9 resultswithin the time period is included. Sodium 139 135 - 148 mEq/L [facility] DEPARTMENT OF PATHOLOGY AND GENOMIC MEDICINE Potassium 4.1 3.5 - 5.0 mEq/L [facility] DEPARTMENT OF PATHOLOGY AND GENOMIC MEDICINE Chloride 96 (L) 98 - 112 mEq/L [facility] DEPARTMENT OF PATHOLOGY AND GENOMIC MEDICINE CO2 33 (H) 24 - 31 mEq/L [facility] DEPARTMENT OF PATHOLOGY AND GENOMIC MEDICINE Anion gap 10 7 - 15 mEq/L [facility] DEPARTMENT OF PATHOLOGY Comment: [facility] Starting from October , anion gap calculation no longer incorporates potassium. Please note the change. BUN 25 (H) 8 - 23 mg/dL [facility] DEPARTMENT OF PATHOLOGY AND GENOMIC MEDICINE Creatinine 1.0 0.7 - 1.2 mg/dL [facility] DEPARTMENT OF PATHOLOGY AND GENOMIC MEDICINE Glucose 89 65 - 99 mg/dL [facility] DEPARTMENT OF PATHOLOGY AND GENOMIC MEDICINE Calcium 9.4 8.8 - 10.2 mg/dL [facility] DEPARTMENT OF PATHOLOGY AND GENOMIC MEDICINE Specimen Plasma specimen Performing Organization Address [facility] Phone Number [facility] DEPARTMENT OF PATHOLOGY AND [address] [place] [phone] GENOMIC MEDICINE ECG Pre/Post Op-Tomorrow (08/16/2017 6:23 PM)Only the most recent of2 resultswithin the time period is included. Ventricular rate 64 [facility] Atrial rate 71 [facility] QRSD interval 106 [facility] QT interval 452 [facility] QTC interval 466 [facility] QRS axis 1 67 [facility] T wave axis 162 [facility] EKG impression Atrial fibrillation with premature [facility] ventricular or aberrantly conducted complexes-Possible Inferior infarct (cited on or before 31-OCT-2014)-Nonspecific T wave abnormality- Performing Organization Address [facility] Phone Number [facility] [address] [place] [address] XR Chest 1 Vw Portable (08/16/2017 5:59 PM)Only the most recent of2 resultswithin the time period is included. Narrative Performed At EXAMINATION: Portable chest x-ray [facility] CLINICAL HISTORY:Pneumothorax COMPARISON: Most recent available chest x-ray. The heart is moderately enlarged. ICD electrode is in stable position. There are degenerative changes in the dorsal spine. IMPRESSION: 1.There is no pneumothorax. 2.No pleural fluid. 3.There is mild vascular congestion with no signs of pulmonary edema. [id number] Procedure Note Interface, Radiology Results Incoming - 08/16/2017 6:11 PM [employer] EXAMINATION: Portable chest x-ray CLINICAL HISTORY: Pneumothorax COMPARISON: Most recent available chest x-ray. The heart is moderately enlarged. ICD electrode is in stable position. There are degenerative changes in the dorsal spine. IMPRESSION: 1. There is no pneumothorax. 2. No pleural fluid. 3. There is mild vascular congestion with no signs of pulmonary edema. [id number] Performing Organization Address [facility] Phone Number [facility] [address] [place] [address] Cv electrophysiology procedure (08/16/2017 4:21 PM) Narrative Performed At TITLE: [facility] ICD implantation. PREOPERATIVE DIAGNOSES: 1.Nonischemic dilated cardiomyopathy. [...] a scalpel, cautery, and blunt dissection.Using the [id number] technique and an introducer sheath, a defibrillation [...] right ventricular apical defibrillation lead is a [employer] [place] 4-site G, model 0296, serial #[id number].Measured R-wave 5.3 millivolt, pacing threshold 0.6 volt, current 1.0 mA, impedance 664 ohms. 2.Defibrillator is a [employer] Vigilant EL ICD model Delta D232, serial #[id number]. 3.Defibrillator safety threshold testing not performed due to inability to anticoagulate because of hematuria. CONCLUSIONS: Successful ICD placement. RECOMMENDATIONS: Once he can accept oral anticoagulation for a sufficient duration, we will bring him back for outpatient DFT assessment. Performing Organization Address City/[facility] Phone Number [facility] [address] [place] [address] Potassium level (08/16/2017 9:16 AM)Only the most recent of3 resultswithin the time period is included. Potassium 4.0 3.5 - 5.0 mEq/L [facility] DEPARTMENT OF PATHOLOGY AND GENOMIC MEDICINE Specimen Plasma specimen Performing Organization Address City/[facility]/Zipcode Phone Number [facility] DEPARTMENT OF PATHOLOGY AND [address] [place] [phone] [facility] CBC with platelet and differential (08/16/2017 6:25 AM)Only the most recent of7 resultswithin the time period is included. WBC 5.87 4.50 - 11.00 k/uL [facility] DEPARTMENT OF PATHOLOGY AND GENOMIC MEDICINE RBC 3.45 (L) 4.40 - 6.00 m/uL [facility] DEPARTMENT OF PATHOLOGY AND GENOMIC MEDICINE HGB 10.3 (L) 14.0 - 18.0 g/dL [facility] DEPARTMENT OF PATHOLOGY AND GENOMIC MEDICINE HCT 31.9 (L) 41.0 - 51.0 % [facility] DEPARTMENT OF PATHOLOGY AND GENOMIC MEDICINE MCV 92.5 82.0 - 100.0 fL [facility] DEPARTMENT OF PATHOLOGY AND GENOMIC MEDICINE MCH 29.9 27.0 - 34.0 pg [facility] DEPARTMENT OF PATHOLOGY AND GENOMIC MEDICINE MCHC 32.3 31.0 - 37.0 g/dL [facility] DEPARTMENT OF PATHOLOGY AND GENOMIC MEDICINE RDW - SD 55.8 (H) 37.0 - 55.0 fL [facility] DEPARTMENT OF PATHOLOGY AND GENOMIC MEDICINE MPV 12.1 8.8 - 13.2 fL [facility] DEPARTMENT OF PATHOLOGY AND GENOMIC MEDICINE Platelet count 92 (L) 150 - 400 k/uL [facility] DEPARTMENT OF PATHOLOGY AND GENOMIC MEDICINE Nucleated RBC 0.00 /100 WBC [facility] DEPARTMENT OF PATHOLOGY AND GENOMIC MEDICINE Neutrophils 68.7 39.0 - 69.0 % [facility] DEPARTMENT OF PATHOLOGY AND GENOMIC MEDICINE Lymphocytes 13.3 (L) 25.0 - 45.0 % [facility] DEPARTMENT OF PATHOLOGY AND GENOMIC MEDICINE Monocytes 9.7 0.0 - 10.0 % [facility] DEPARTMENT OF PATHOLOGY AND GENOMIC MEDICINE Eosinophils 6.8 (H) 0.0 - 5.0 % [facility] DEPARTMENT OF PATHOLOGY AND GENOMIC MEDICINE Basophils 1.2 (H) 0.0 - 1.0 % [facility] DEPARTMENT OF PATHOLOGY AND GENOMIC MEDICINE Immature granulocytes 0.3Comment: 0.0 - 1.0 % [facility] DEPARTMENT OF "Immature PATHOLOGY AND GENOMIC granulocytes" MEDICINE (promyelocytes, myelocytes, metamyelocytes) Specimen Blood Performing Organization Address City/[facility] Phone Number [facility] DEPARTMENT OF PATHOLOGY AND [address] [place] [phone] GENOMIC MEDICINE Phosphorus level (08/14/2017 4:00 PM)Only the most recent of4 resultswithin the time period is included. Phosphorus 2.9 2.4 - 4.5 mg/dL [facility] DEPARTMENT OF PATHOLOGY AND GENOMIC MEDICINE Specimen Plasma specimen Performing Organization Address City/[facility]/Zipcode Phone Number [facility] DEPARTMENT PATHOLOGY AND [address] [place] [phone] GENOMIC MEDICINE ECG 12 lead (08/12/2017 12:15 PM) Ventricular rate 80 [facility] Atrial rate 66 [facility] QRSD interval 114 [facility] QT interval 506 [facility] QTC interval 583 [facility] QRS axis 1 61 [facility] T wave axis 171 [facility] EKG impression Accelerated Junctional rhythm with frequent premature ventricular complexes-Possible underlying atrial fibrillation-Possible Inferior infarct (cited on or before 31-OCT-2014)-ST & T wave abnormality [facility] , consider anterolateral ischemia-Prolonged QT-Abnormal ECG-In automated comparison with ECG of 01-NOV-2014 08:17,-QT has lengthened- Performing Organization Address City/[facility] Phone Number [facility] [address] [place] [address] Cv medical lab tech instructor procedure (08/10/2017 3:09 PM) Narrative Performed At [facility] Other significant cardiac findings of note: RA [...] pressures Continue IV Milrinone and IV Lasix Performing Organization Address [facility] Phone Number [facility] [address] [place] [address] Partial thromboplastin time, activated (08/09/2017 5:05 PM) PTT 36.0 23.0 - 36.0 sec [facility] DEPARTMENT OF PATHOLOGY Comment: AND GENOMIC MEDICINE PTT therapeutic range for unfractionated heparin is 61.0-112.0 seconds which corresponds to Anti-Xa 0.3-0.7 U/ml. Specimen Blood Performing Organization Address [facility] Phone Number [facility] DEPARTMENT OF PATHOLOGY AND [address] [place] [phone] GENOMIC MEDICINE Prothrombin time with INR (08/09/2017 5:05 PM) Prothrombin time 17.7 (H) 12.0 - 15.0 sec [facility] DEPARTMENT OF PATHOLOGY AND GENOMIC MEDICINE INR 1.4 [facility] DEPARTMENT OF Comment: PATHOLOGY AND GENOMIC The International Normalized Ratio (INR) is a therapeutic MEDICINE monitoring tool for patients who are stable on oral anticoagulant therapy. An INR of 2.0-3.0 is suggested for deep vein thrombosis/pulmonary embolism. Specimen Blood Performing Organization Address [facility]/State/[facility] Phone Number [facility] DEPARTMENT OF PATHOLOGY AND [address] [place] [address] CBC hemogram (08/09/2017 5:05 PM) WBC 7.03 4.50 - 11.00 k/uL [facility] DEPARTMENT OF PATHOLOGY AND GENOMIC MEDICINE RBC 3.68 (L) 4.40 - 6.00 m/uL [facility] DEPARTMENT OF PATHOLOGY AND GENOMIC MEDICINE HGB 11.0 (L) 14.0 - 18.0 g/dL [facility] DEPARTMENT OF PATHOLOGY AND GENOMIC MEDICINE HCT 34.5 (L) 41.0 - 51.0 % [facility] DEPARTMENT OF PATHOLOGY AND GENOMIC MEDICINE MCV 93.8 82.0 - 100.0 fL [facility] DEPARTMENT OF PATHOLOGY AND GENOMIC MEDICINE MCH 29.9 27.0 - 34.0 pg [facility] DEPARTMENT OF PATHOLOGY AND GENOMIC MEDICINE MCHC 31.9 31.0 - 37.0 g/dL [facility] DEPARTMENT OF PATHOLOGY AND GENOMIC MEDICINE RDW - SD 58.0 (H) 37.0 - 55.0 fL [facility] DEPARTMENT OF PATHOLOGY AND GENOMIC MEDICINE MPV 11.8 8.8 - 13.2 fL [facility] DEPARTMENT OF PATHOLOGY AND GENOMIC MEDICINE Platelet count 110 (L) 150 - 400 k/uL [facility] DEPARTMENT OF PATHOLOGY AND GENOMIC MEDICINE Nucleated RBC 0.00 /100 WBC [facility] DEPARTMENT OF PATHOLOGY AND GENOMIC MEDICINE Specimen Blood Performing Organization Address [facility] Phone Number [facility] DEPARTMENT OF PATHOLOGY AND [address] [place] [address] Thyroid stimulating hormone (08/09/2017 5:05 PM) TSH 13.20 (H) 0.27 - 4.20 uIU/mL [facility] DEPARTMENT OF PATHOLOGY AND GENOMIC MEDICINE Specimen Plasma specimen Performing Organization Address City/[facility] Phone Number [facility] DEPARTMENT OF PATHOLOGY AND [address] [place] [address] T4, free (08/09/2017 5:05 PM) T4, free 0.9 0.9 - 1.7 ng/dL [facility] DEPARTMENT OF PATHOLOGY AND GENOMIC MEDICINE Specimen Plasma specimen Performing Organization Address [facility] Phone Number [facility] DEPARTMENT OF PATHOLOGY AND [address] [place] [address] Comprehensive metabolic panel (08/09/2017 5:05 PM) Sodium 141 135 - 148 mEq/L [facility] DEPARTMENT OF PATHOLOGY AND GENOMIC MEDICINE Potassium 3.6 3.5 - 5.0 mEq/L [facility] DEPARTMENT OF PATHOLOGY AND GENOMIC MEDICINE Chloride 97 (L) 98 - 112 mEq/L [facility] DEPARTMENT OF PATHOLOGY AND GENOMIC MEDICINE CO2 33 (H) 24 - 31 mEq/L [facility] DEPARTMENT OF PATHOLOGY AND GENOMIC MEDICINE Anion gap 11 7 - 15 mEq/L [facility] DEPARTMENT OF Comment: PATHOLOGY AND GENOMIC Starting from October , anion gap calculation MEDICINE no longer incorporates potassium. Please note the change. BUN 24 (H) 8 - 23 mg/dL [facility] DEPARTMENT OF PATHOLOGY AND GENOMIC MEDICINE Creatinine 1.2 0.7 - 1.2 mg/dL [facility] DEPARTMENT OF PATHOLOGY AND GENOMIC MEDICINE Glucose 132 (H) 65 - 99 mg/dL [facility]PART[facility] OF PATHOLOGY AND GENOMIC MEDICINE Calcium 9.9 8.8 - 10.2 mg/dL [facility]OLOG[facility] GENOM[facility]IC[facility] Protein 7.4 6.3 - 8.3 g/dL [facility] DEPARTMENT OF Comment: PATHOLOGY AND GENOMIC 4.6-7.0 g/dL MEDICINE 1 week 4.4-7.6 g/dL 7 months-1year5.1-7.3 g/dL 1-2 years5.6-7.5 g/dL >3 years6.0-8.0 g/dL 18-150 6.3-8.3 g/dL Albumin 3.1 (L) 3.5 - 5.0 g/dL [facility] PATHOLOGY [facility] GENOMIC MEDICINE A/G ratio 0.7 0.7 - 3.8 [facility]OLOGY [facility] GENOMIC MEDICINE Alkaline phosphatase 69 40 - 129 U/L [facility]OLOGY [facility] GENOMIC MEDICINE AST 24 10 - 50 U/L [facility] OF PATHOLOGY AND GENOMIC MEDICINE ALT 13 5 - 50 U/L [facility] OF PATHOLOGY AND GENOMIC MEDICINE Total bilirubin 1.0 0.0 - 1.2 mg/dL [facility]PART[facility] OF PATHOLOGY AND GENOMIC MEDICINE Specimen Plasma specimen Performing Organization Address City/State/Zipcode Phone Number [facility]PARTMENT OF PATHOLOGY AND [address] [place] [address] GENOMIC [facility] after 01/19/2017 Insurance Payer Benefit Plan / Group Subscriber ID Type Phone Address [employer] MED[employer]ARE PPO/PFFS/ERS [facility] xxxxxxxxx PPO Home: [id number] [phone] [place] [id number]
[2018-01-20 14:56] LABS: Absolute Lymphocytes (CBC) 0.6 K/uL (0.7-4.9); Absolute Monocytes 0.5 K/uL (0.1-1.3); Absolute Neutrophil 4.5 K/uL (1.8-8.0); Basophils % 0.2 % (0-1.3); Eosinophils % 4.2 % (0-4.4); Hematocrit 28.5 % (39.6-49.0); Lymphocytes % 10.9 % (15.3-44.8); MCH 30.3 pg (27.0-35.0); MCV 91.4 fL (80-100); MPV 9.3 fL (7.6-11.3); Monocytes % 8.6 % (3.3-12.3); RBC Red Blood Cell Count 3.11 M/uL (4.33-5.43)
[2018-01-20 15:16] LABS: Potassium 4.2 mmol/L (3.5-5.1)
--- NOTE | 2018-01-20 15:27 | RAD REPORT ---
EXAM DESCRIPTION: VAS - Extrem Venous W Compress Kian - 01/20/2018 3:22 pm CLINICAL HISTORY: SWELLING Bilateral leg edema and swelling. COMPARISON: Extrem Venous W Compress Kian dated 10/26/2016 TECHNIQUE: Real-time sonographic interrogation of the left and right lower extremity deep venous sys tems was performed. FINDINGS: Normal compressibility, flow augmentation, phasic flow and spontaneous flow is identified in both the left and right lower extremity deep venous systems. IMPRESSION: No sonographic evidence of left or right lower extremity deep venous thrombosis.
--- NOTE | 2018-01-20 16:22 | EDPHYS ---
Physician Documentation [facility] Name: Atul Burton Sr Age: 77 yrs Sex: Male : 1940 Arrival Date: 01/20/2018 Time: 13:18 Bed 19 Private MD: Christian Valladares R ED Physician Esau Lowe HPI: 01/21 07:40 This 77 yrs old Male presents to ER via Wheelchair with complaints of Leg kdr Swelling. 07:40 The patient presents with decreased range of motion, pain, that is chronic, swelling, kdr tenderness, Weeping. The complaints affect the lateral aspect of left calf, left lateral ankle, left calf, left Achilles, medial aspect of left calf, left medial ankle, left valencia and anterior aspect of left ankle, lateral aspect of right calf, right ankle, right calf, right Achilles, medial aspect of right calf, right valencia and anterior aspect of right ankle. Context: The problem was sustained at home, The patient had presented to Dr. Mcqueen office and was noted to the worsening swelling and redness to bilateral lower extremities. Sent from cardiology to ED. Onset: The symptoms/episode began/occurred gradually, at an unknown time. Modifying factors: The symptoms are alleviated by nothing. the symptoms are aggravated by nothing. Associated signs and symptoms: The patient has no apparent associated signs or symptoms. Severity of symptoms: At their worst the symptoms were moderate, in the emergency department the symptoms are unchanged. The patient has not experienced similar symptoms in the past. The patient has not recently seen a physician. Historical: - Allergies: 01/20 13:40 PENICILLINS; aj1 - Home Meds: 13:40 Albuterol-Ipratropium Inhl 2 puffs 4 times per day [Active]; aspirin 81 mg Oral chew 1 aj1 tab once daily [Active]; carvedilol 6.25 mg Oral tab 1 tab 2 times per day [Active]; furosemide 80 mg Oral tab 1 tab 2 times per day [Active]; metolazone 5 mg Oral tab 1 tab WEEKLY [Active]; Plavix 75 mg Oral tab 1 tab once daily [Active]; potassium chloride 10 mEq Oral TbER [Active]; spironolactone 25 mg Oral tab 1 tab once daily [Active]; torsemide 20 mg Oral tab 3 tab twice a day [Active]; Zoloft 100 mg Oral tab 1 tab once daily [Active]; - PMHx: 13:40 Anxiety; Depression; Hypertension; pacemaker/defibrillator; CHF; aj1 - PSHx: 13:40 triple bypass; aj1 - Immunization history:: Flu vaccine is up to date. - Social history:: Smoking status: unknown. - Ebola Screening: : Patient denies travel to an Ebola-affected area in the 21 days before illness onset. ROS: 01/21 07:40 Constitutional: Negative for fever, chills, and weight loss, Eyes: Negative for injury, kdr pain, redness, and discharge, Neck: Negative for injury, pain, and swelling, Cardiovascular: Negative for chest pain, palpitations, and edema, Respiratory: Negative for shortness of breath, cough, wheezing, and pleuritic chest pain, Abdomen/GI: Negative for abdominal pain, nausea, vomiting, diarrhea, and constipation, Back: Negative for injury and pain, : Negative for injury, bleeding, discharge, and swelling, Neuro: Negative for headache, weakness, numbness, tingling, and seizure activity. Psych: Negative for depression, anxiety, suicide ideation, homicidal ideation, and hallucinations, Allergy/Immunology: Negative for hives, rash, and allergies, Endocrine: Negative for neck swelling, polydipsia, polyuria, polyphagia, and marked weight changes, Hematologic/Lymphatic: Negative for swollen nodes, abnormal bleeding, and unusual bruising. MS/extremity: Positive for decreased range of motion, erythema, pain, swelling, tenderness, warmth, of the right leg and left leg. Exam: 07:40 Constitutional: This is a well developed, well nourished patient who is awake, alert, kdr and in no acute distress. Head/Face: Normocephalic, atraumatic. Eyes: Pupils equal round and reactive to light, extra-ocular motions intact. Lids and lashes normal. Conjunctiva and sclera are non-icteric and not injected. Cornea within normal limits. Periorbital areas with no swelling, redness, or edema. Neck: Trachea midline, no thyromegaly or masses palpated, and no cervical lymphadenopathy. Supple, full range of motion without nuchal rigidity, or vertebral point tenderness. No Meningismus. Chest/axilla: Normal chest wall appearance and motion. Nontender with no deformity. No lesions are appreciated. Cardiovascular: Regular rate and rhythm with a normal S1 and S2. No gallops, murmurs, or rubs. Normal PMI, no JVD. No pulse deficits. Respiratory: Lungs have equal breath sounds bilaterally, clear to auscultation and percussion. No rales, rhonchi or wheezes noted. No increased work of breathing, no retractions or nasal flaring. Abdomen/GI: Soft, non-tender, with normal bowel sounds. No distension or tympany. No guarding or rebound. No evidence of tenderness throughout. Back: No spinal tenderness. No costovertebral tenderness. Full range of motion. MS/ Extremity: Pulses equal, no cyanosis. Neurovascular intact. Limited range of motion secondary to chronic disease Neuro: Awake and alert, GCS 15, oriented to person, place, time, and situation. Cranial nerves II-XII grossly intact. Motor strength 5/5 in all extremities. Sensory grossly intact. Cerebellar exam normal. Normal gait. Psych: Awake, alert, with orientation to person, place and time. Behavior, mood, and affect are within normal limits. 07:40 Skin: cellulitis, induration, that is moderate is noted, located on the lateral aspect of left calf, left lateral ankle, left calf, left Achilles, medial aspect of left calf, left medial ankle, left valencia and anterior aspect of left ankle, Turgor: is poor. Vital Signs: 01/20 13:40 BP 107 / 53; Pulse 68; Resp 20; Temp 97.8; Pulse Ox 95% ; Weight 85.73 kg (R); Height 5 aj1 ft. 9 in. (175.26 cm) (R); Pain 0/10; 15:10 BP 132 / 55; Pulse 70; Resp 19; Pulse Ox 98% on 2 lpm NC; sg 16:00 BP 110 / 60; Pulse 70; Resp 19; Temp 97.8; Pulse Ox 96% on 2 lpm NC; Pain 0/10; sg 13:40 Body Mass Index 27.91 (85.73 kg, 175.26 cm) aj1 MDM: 16:21 Patient medically screened. kdr 01/21 07:40 Data reviewed: vital signs, nurses notes, lab test result(s), EKG, radiologic studies. kdr Counseling: I had a detailed discussion with the patient and/or guardian regarding: the historical points, exam findings, and any diagnostic results supporting the discharge/admit diagnosis, lab results, radiology results, the need for outpatient follow up. Physician consultation: Christian Valladares MD. 01/20 14:10 Order name: CBC with Diff; Complete Time: 16:18 kdr 01/20 14:10 Order name: Chem 7; Complete Time: 16:18 kdr 01/20 14:10 Order name: Blood Culture Adult (2) kdr 01/20 16:28 Order name: Vancomycin Peak EDMS 01/20 16:28 Order name: Vancomycin Level Trough EDMS 01/20 16:28 Order name: Basic Metabolic Panel EDMS 01/20 14:10 Order name: US Extremity Venous W Compression Kian; Complete Time: 16:18 kdr 01/20 16:28 Order name: Basic Metabolic Panel EDMS 01/20 16:28 Order name: CBC with Automated Diff EDMS 01/20 16:28 Order name: CBC with Automated Diff EDMS Administered Medications: 01/20 16:43 Drug: vancoMYCIN 1 grams Route: IVPB; Infused Over: 2 hrs; Site: right antecubital; sg 16:44 Drug: Lasix 40 mg Route: IVP; Site: right antecubital; sg Disposition: 01/20/18 16:21 Hospitalization ordered by Christian Valladares for Inpatient Admission. Preliminary diagnosis is Cellulitis to bilateral lower extremities. - Bed requested for Telemetry/MedSurg (Inpatient). - Status is Inpatient Admission. sg - Condition is Fair. - Problem is an ongoing problem. - Symptoms are unchanged. UTI on Admission? No Signatures: Dispatcher [employer] EDPA Roxanna Chery RN RN aj1 Kike Fernández RN RN Esau Lowe MD MD [facility] Kelsey Hall RN RN df Corrections: (The following items were deleted from the chart) 16:43 16:21 Hospitalization Ordered by Christian Valladares MD for Inpatient Admission. Preliminary df diagnosis is Cellulitis to bilateral lower extremities. Bed requested for Telemetry/MedSurg (Inpatient). Status is Inpatient Admission. Condition is Fair. Problem is an ongoing problem. Symptoms are unchanged. UTI on Admission? No. kdr 17:22 16:43 01/20/2018 16:21 Hospitalization Ordered by Christian Valladares MD for Inpatient sg Admission. Preliminary diagnosis is Cellulitis to bilateral lower extremities. Bed requested for Telemetry/MedSurg (Inpatient). Status is Inpatient Admission. Condition is Fair. Problem is an ongoing problem. Symptoms are unchanged. UTI on Admission? No. df
--- NOTE | 2018-01-20 16:22 | ER ---
Nurse's Notes [facility] Name: Atul Burton Sr Age: 77 yrs Sex: Male : 1940 Arrival Date: 01/20/2018 Time: 13:18 Bed 19 Private MD: Christian Valladares R Diagnosis: Cellulitis to bilateral lower extremities Presentation: 01/20 13:36 Presenting complaint: Patient states: He went to go see Dr. Mcqueen because both his aj1 legs are swollen. He was told by Dr. Mcqueen that it looked infected and to go to the emergency room. Denies SOB. Redness, swelling noted to bilateral lower legs. Transition of care: patient was not received from another setting of care. Onset of symptoms was December 2017. Risk Assessment: Do you want to hurt yourself or someone else? Patient reports no desire to harm self or others. Initial Sepsis Screen: Does the patient meet any 2 criteria? No. Patient's initial sepsis screen is negative. Does the patient have a suspected source of infection? No. Patient's initial sepsis screen is negative. Care prior to arrival: None. 13:36 Method Of Arrival: Wheelchair aj1 13:36 Acuity: KASI 3 aj1 Triage Assessment: 13:40 General: Appears in no apparent distress. comfortable, Behavior is calm, cooperative, aj1 appropriate for age. Pain: Denies pain. Neuro: Level of Consciousness is awake, alert, obeys commands. Cardiovascular: Patient's skin is warm and dry. redness and swelling noted to bilateral lower legs, with clear drainage, blistering. Respiratory: Airway is patent Respiratory effort is even, unlabored, Respiratory pattern is regular, symmetrical. Historical: - Allergies: 13:40 PENICILLINS; aj1 - Home Meds: 13:40 Albuterol-Ipratropium Inhl 2 puffs 4 times per day [Active]; aspirin 81 mg Oral chew 1 aj1 tab once daily [Active]; carvedilol 6.25 mg Oral tab 1 tab 2 times per day [Active]; furosemide 80 mg Oral tab 1 tab 2 times per day [Active]; metolazone 5 mg Oral tab 1 tab WEEKLY [Active]; Plavix 75 mg Oral tab 1 tab once daily [Active]; potassium chloride 10 mEq Oral TbER [Active]; spironolactone 25 mg Oral tab 1 tab once daily [Active]; torsemide 20 mg Oral tab 3 tab twice a day [Active]; Zoloft 100 mg Oral tab 1 tab once daily [Active]; - PMHx: 13:40 Anxiety; Depression; Hypertension; pacemaker/defibrillator; CHF; aj1 - PSHx: 13:40 triple bypass; aj1 - Immunization history:: Flu vaccine is up to date. - Social history:: Smoking status: unknown. - Ebola Screening: : Patient denies travel to an Ebola-affected area in the 21 days before illness onset. Screenin:23 Abuse screen: Denies threats or abuse. Denies injuries from another. Nutritional sg screening: No deficits noted. Tuberculosis screening: No symptoms or risk factors identified. Never had TB. Fall Risk None identified. Assessment: 14:15 Reassessment: pt ambulatory to ER restroom, pt reports voidx1. sg 14:21 General: Appears in no apparent distress. comfortable, well groomed, well developed, sg well nourished, Behavior is calm, cooperative, appropriate for age. Pain: Denies pain. Neuro: Level of Consciousness is awake, alert, obeys commands, Oriented to person, place, time, situation, Moves all extremities. Full function Gait is steady, Speech is normal, Facial symmetry appears normal. Cardiovascular: Heart tones S1 S2 present Capillary refill is sluggish in bilateral fingers toes Patient's skin is warm and dry. Chest pain is denied. Cardiovascular: Edema is 2+ to left ankle, left foot, right ankle and right foot. Respiratory: Airway is patent Respiratory effort is even, labored, Respiratory pattern is regular, symmetrical, Breath sounds with crackles in left posterior lower lobe, right posterior middle lobe and right posterior lower lobe. GI: Abdomen is round non-distended, obese, Bowel sounds present X 4 quads. : No signs and/or symptoms were reported regarding the genitourinary system. EENT: No signs and/or symptoms were reported regarding the EENT system. Derm: Skin is dry, Skin is pale, Skin temperature is warm skin tears noted to BUE, pt has a bandaid/dressing to right elbow, pt reports " i get banged up and bruised when i bump into stuff.". Musculoskeletal:. Vital Signs: 13:40 BP 107 / 53; Pulse 68; Resp 20; Temp 97.8; Pulse Ox 95% ; Weight 85.73 kg (R); Height 5 aj1 ft. 9 in. (175.26 cm) (R); Pain 0/10; 15:10 BP 132 / 55; Pulse 70; Resp 19; Pulse Ox 98% on 2 lpm NC; sg 16:00 BP 110 / 60; Pulse 70; Resp 19; Temp 97.8; Pulse Ox 96% on 2 lpm NC; Pain 0/10; sg 13:40 Body Mass Index 27.91 (85.73 kg, 175.26 cm) aj1 ED Course: 13:18 Patient arrived in ED. mr 13:18 Christian Valladares MD is Private Physician. mr 13:38 Triage completed. aj1 13:40 Arm band placed on Patient placed in waiting room, Patient notified of wait time. aj1 13:49 Esau Lowe MD is Attending Physician. kdr 13:59 Kike Fernández RN is Primary Nurse. sg 14:20 No provider procedures requiring assistance completed. sg 14:25 EKG done, by arcade game technician. reviewed by Esau Lowe MD. sm3 14:30 Patient has correct armband on for positive identification. Placed in gown. Bed in low sg position. Side rails up X2. Pulse ox on. NIBP on. 15:00 Patient taken to ultrasound. via wheelchair. aa4 15:20 Ultrasound completed. Patient tolerated well. Patient moved back from ultrasound. aa4 15:22 US Extremity Venous W Compression Kian In Process Unspecified. EDMS 16:21 Christian Valladares MD is Hospitalizing Provider. kdr Administered Medications: 16:43 Drug: vancoMYCIN 1 grams Route: IVPB; Infused Over: 2 hrs; Site: right antecubital; sg 16:44 Drug: Lasix 40 mg Route: IVP; Site: right antecubital; sg Outcome: 16:21 Decision to Hospitalize by Provider. kdr 17:20 Admitted to Med/surg accompanied by tech, via wheelchair. sg 17:22 Patient left the ED. sg Signatures: Dispatcher [employer] EDMS Roxanna Chery RN RN aj1 Kike Fernández RN RN sg Esau Lowe MD MD kdr Millicent Truong Farida Perdomo aa4 Merari Simmons 3 Corrections: (The following items were deleted from the chart) 13:43 13:40 Arm band placed on Patient placed in an exam room, aj1 aj1
[2018-01-20] MEDS ORDERED: ONDANSETRON 4 MG/2 ML VIAL IV PRN (16:23)
[2018-01-20] MEDS ORDERED: ACETAMINOPHEN 500 MG TAB PO PRN (16:23)
[2018-01-20] MEDS ORDERED: VANCOMYCIN 1 GM/250 ML BAG ONE (16:34)
[2018-01-20] MEDS ORDERED: FUROSEMIDE 40 MG/4 ML VIAL ONE (16:34)
[2018-01-20] MEDS ORDERED: VANCOMYCIN 1.25 GM in NA CHLORIDE 0.9% 250 ML IVPB SCH (17:00)
[2018-01-20] MEDS: VANCOMYCIN 1.5 GM in NA CHLORIDE 0.9% 500 ML IVPB SCH (17:33)
[2018-01-20 18:10] VITALS: BMI 42.2
[2018-01-20] MEDS ORDERED: ALBUTEROL 2.5 MG/3 ML NEB SOL NEB PRN (19:20)
[2018-01-20] MEDS: CARVEDILOL 6.25 MG TAB PO SCH (20:49)
[2018-01-20] MEDS: SPIRONOLACTONE 25 MG TABLET PO SCH (20:49)
[2018-01-20] MEDS: FUROSEMIDE 40 MG TABLET PO SCH (20:50)
[2018-01-20 22:00] LABS: Urine Appearance CLEAR; Urine Bilirubin NEGATIVE (NEG); Urine Blood NEGATIVE (NEG); Urine Color YELLOW; Urine Glucose NEGATIVE (NEG); Urine Protein NEGATIVE (NEG); Urine Specific Gravity <=1.005 (1.005-1.030); Urine pH 7.5 (5.0-7.0)
[2018-01-20 22:01] LABS: Urine Microscopic Reflex NO UMIC
[2018-01-21] MEDS: CARVEDILOL 6.25 MG TAB PO SCH ×2 (08:56→20:49)
[2018-01-21] MEDS: POTASSIUM CL SA 10 MEQ TAB PO SCH (08:56)
[2018-01-21] MEDS: SPIRONOLACTONE 25 MG TABLET PO SCH ×2 (08:56→20:50)
[2018-01-21] MEDS: FUROSEMIDE 40 MG TABLET PO SCH ×2 (08:56→20:51)
[2018-01-21] MEDS: ASPIRIN EC 81 MG TAB PO SCH (08:56)
[2018-01-21] MEDS: METOLAZONE 5 MG TABLET PO SCH (08:56)
[2018-01-21] MEDS: SERTRALINE HCL 100 MG TAB PO SCH (08:56)
[2018-01-21] MEDS: CLOPIDOGREL 75 MG TABLET PO SCH (08:57)
--- NOTE | 2018-01-21 13:32 | HP ---
Date of Admission: 01/20/2018 Chief Complaint: Pain, swelling, redness, left leg and right leg. History Of Present Illness: A 77-year-old male, who is known to have history of congestive heart sukhdev ocasio, went for a visit to Dr. Mcqueen and he found evidence of cellulitis. He was sent to ER. The ash haywood is admitted to the ER. The patient denied any history of trauma. No history of fever, chills, rigors. Past Medical History: Includes history of congestive heart failure, hypertension, history of permane nt pacemaker and defibrillator, history of anxiety and depression. Past Surgical History: Positive for coronary bypass surgery. Family History: Hypertension present. Personal History: Nonsmoker. Allergies: PENICILLIN. Home Medicines: Please refer to the chart. Review of Systems: No history of fever, chills, or rigors. Physical Examination: General: Revealed a 77-year-old male, alert for his age. HEENT: Negative. Neck: Supple. JVD negative. Chest: Clear. Heart: Irregularity noted. Abdomen: Pendulous, nontender. Extremities: bilateral pedal edema noted. There are open areas with exudation and drainage, both le gs, left more than the right. Pedal pulses hard to feel because of the swelling. Laboratory Data: White count normal. Chem profile; BUN 19, hemoglobin 9.4. Assessment: 1.Cellulitis, both legs, left more than the right. 2.Congestive heart failure. 3.Known coronary artery disease, status post coronary bypass surgery. 4.Permanent pacemaker and defibrillator. 5.Depression. Plan: The patient is started on vancomycin. He will be followed on vancomycin and his regular medic ations will be restarted. DEVIKA/MADHURI Voice ID: [id number]
[2018-01-21] MEDS ORDERED: ALBUTEROL 2.5 MG/3 ML NEB SOL NEB PRN (14:00)
[2018-01-21] MEDS: VANCOMYCIN 1.5 GM in NA CHLORIDE 0.9% 500 ML IVPB SCH (16:52)
[2018-01-22] MEDS: METOLAZONE 5 MG TABLET PO SCH (09:42)
[2018-01-22] MEDS: CLOPIDOGREL 75 MG TABLET PO SCH (09:43)
[2018-01-22] MEDS: POTASSIUM CL SA 10 MEQ TAB PO SCH (09:44)
[2018-01-22] MEDS: SPIRONOLACTONE 25 MG TABLET PO SCH ×2 (09:45→20:51)
[2018-01-22] MEDS: SERTRALINE HCL 100 MG TAB PO SCH (09:46)
[2018-01-22] MEDS: FUROSEMIDE 40 MG TABLET PO SCH ×2 (09:46→20:50)
[2018-01-22] MEDS: ASPIRIN EC 81 MG TAB PO SCH (09:48)
[2018-01-22] MEDS: CARVEDILOL 6.25 MG TAB PO SCH ×2 (09:48→20:51)
--- NOTE | 2018-01-22 10:34 | EKG ---
Test Date: 2018-01-20 Test Time: 14:09:43 Bulb Inspector: RITU MEASUREMENT RESULTS: Intervals: Rate: 73 TX: QRSD: 112 QT: 464 QTc: 511 Cl[place]: P: TX: QRS: 61 T: 171 INTERPRETIVE STATEMENTS: Atrial fibrillation Cannot rule out Anterior infarct, age undetermined Prolonged QT Abnormal ECG Compared to ECG 07/28/2017 16:46:18 No significant changes Electronically Signed On 01-22-18 10:27:56 CDT by Michi Perales
[2018-01-22] MEDS: VANCOMYCIN 1.5 GM in NA CHLORIDE 0.9% 500 ML IVPB SCH (17:00)
--- NOTE | 2018-01-22 17:54 | PN ---
The patient's wounds on the legs look better. There is no active drainage anymore. He is afebrile. In view of improvement, he will be continued on the same IV antibiotic therapy. The patient is advi sed to elevate the legs. Meanwhile, the patient will be continued on his regular medications. DEVIKA/MADHURI Voice ID: [id number] Report ID: [id number]
[2018-01-23] MEDS: METOLAZONE 5 MG TABLET PO SCH (09:00)
[2018-01-23] MEDS: SPIRONOLACTONE 25 MG TABLET PO SCH (09:00)
[2018-01-23 09:08] VITALS: O2SAT 98
[2018-01-23] MEDS: POTASSIUM CL SA 10 MEQ TAB PO SCH (10:28)
[2018-01-23] MEDS: ASPIRIN EC 81 MG TAB PO SCH (10:29)
[2018-01-23] MEDS: SERTRALINE HCL 100 MG TAB PO SCH (10:29)
[2018-01-23] MEDS: CARVEDILOL 6.25 MG TAB PO SCH (10:30)
[2018-01-23] MEDS: CLOPIDOGREL 75 MG TABLET PO SCH (10:31)
[2018-01-23] MEDS: FUROSEMIDE 40 MG TABLET PO SCH (10:31)
[2018-01-23 15:20] VITALS: BP 108/57; TEMP 97.4
--- NOTE | 2018-01-23 19:28 | PN ---
The patient's leg looks better. He is afebrile. He is ambulating in the room. However, there is st ill some redness and swelling. The patient will be reexamined tomorrow and possible discharge. DEVIKA/MADHURI Voice ID: [id number] Report ID: [id number]
--- NOTE | 2018-03-04 15:25 | DS ---
Date of Discharge: 01/23/2018 Final Diagnoses: 1.Cellulitis, both legs. 2.Congestive heart failure. 3.Known coronary artery disease. 4.Permanent pacemaker and defibrillator. 5.Depression. 6.Type 2 diabetes. Hospital Course: This patient was admitted because of evidence of cellulitis of both legs. He was a dmitted through emergency room after admission to the hospital, the patient was started on IV vancomy brianna. His white count was normal at admission. The patient was continued on this regimen over the ne xt few days and discharged home on 01/23 on oral antibiotic and to have outpatient followup. Laboratory Data: Please refer to the chart. DEVIKA/MADHURI Voice ID: [id number] Report ID: [id number]
== END 2018-01-23 16:10 | disposition home or self-care (01) ==
LOC: ER 13:14 → ERHOLD 16:22 → INTOOBSV 16:22 → 2ND 17:12
PROVIDERS: ADMIT Internal Medicine; ATTEND Internal Medicine
DX: L03.116 Cellulitis of left lower limb (principal); L03.115 Cellulitis of right lower limb; I25.10 Atherosclerotic heart disease of native coronary artery without angina pectoris; Z95.1 Presence of aortocoronary bypass graft; Z95.810 Presence of automatic (implantable) cardiac defibrillator; F32.9 Major depressive disorder, single episode, unspecified; I11.0 Hypertensive heart disease with heart failure; I50.9 Heart failure, unspecified; Z88.0 Allergy status to penicillin
CPT/HCPCS: 36415 ×2; 80048; 80202; 81003; 85025; 87040 ×2; 93005; 93970; 96374; 96375; 99285; G0378 ×2; J3370

== ENCOUNTER 2018-03-16 13:49 | Inpatient (IN) | payer OTHER ==
--- OUTSIDE RECORDS SUMMARY | 2018-03-16 13:55 | XMS REPORT | Clinical Summary ---
:1940 Author Organization [facility] Address [address] [place] [address] Care Team Providers Name Role Phone Christian [...] Visit Cardiology Gene Jain Chronic systolic [place], MANAGER DECISION SUPPORT-C congestive heart failure (Primary Dx) 08/25/2017 Hospital [...] Cardiology MD Sofia single dual bi vent [[id number] (CPT)] 08/13/2017 Transcribe Orders Procedural Kendal Navarro Atrial Cardiology MD Sofia fibrillation, unspecified type (Primary Dx) 08/10/2017 Procedure Pass Procedural Cardiology 08/10/2017 Surgery Procedural Kendal Navarro Cv right heart cath Cardiology MD Sofia [[id number] (CPT)] 08/10/2017 Procedure Pass Procedural Cardiology 08/09/2017 - Hospital Encounter Cardiology Bryan Cruz Acute systolic 08/18/2017 MD Edwina congestive heart failure (Primary Dx) after 03/15/2017 Social History Tobacco Use Types Packs/Day Years Used Date Never Assessed Sex Assigned at Date Recorded Not on file Last Filed Vital Signs Vital Sign Reading Time Taken Blood Pressure 115/69 08/25/2017 12:37 PM INTERIOR PANELER Pulse 74 08/25/2017 12:37 PM INTERIOR PANELER Temperature 35.9 C (96.6 F) 08/25/2017 12:37 PM INTERIOR PANELER Respiratory Rate 18 08/25/2017 12:37 PM INTERIOR PANELER Oxygen Saturation 96% 08/18/2017 3:58 PM INTERIOR PANELER Inhaled Oxygen Concentration - - Weight 126 kg (277 lb 6.4 oz) 08/25/2017 12:37 PM INTERIOR PANELER Height 172.7 cm (5' 8") 08/25/2017 12:37 PM INTERIOR PANELER Body Mass Index 42.18 08/25/2017 12:37 PM INTERIOR PANELER Plan of Treatment Health Maintenance Due Date Last Done Comments SHINGRIX VACCINE (#1) 1991 ZOSTER VACCINE 2001 PNEUMOCOCCAL POLYSACCHARIDE VACCINE AGE 65 AND OVER 2006 PNEUMOCOCCAL-13 2006 INFLUENZA VACCINE 02/09/2018 Implants Implanted Type Area Power Grader Operator Device Expiration Model / Identifier Date Serial / Lot Lead [place] Df4 - [id number] - [id number] Cardiac Pacing N/A: BRENDA [employer] 05/23/2019 [id number] / Implanted: Qty: 1 on 08/16/2017 by Kendal Navarro Jr., MD Leads or N/A YOVANI [id number] / Electrodes or [id number] Accessories Transvenous Icd Vigilant [facility] Df4 - [id number] Defibrillator N/A: [place] [id number] / Implanted: Qty: 1 on 08/16/2017 by Kendal Navarro Jr., MD ICD Devices N/A SCIENTIFIC- CRM / Procedures Procedure Name Priority Date/Time Associated Comments Diagnosis ESTIMATED GFR STAT 08/25/2017 11:50 Results for this AM INTERIOR PANELER procedure are in the results section. MAGNESIUM LEVEL STAT 08/25/2017 11:50 Acute on chronic Results for this AM INTERIOR PANELER systolic heart procedure are in failure the results section. B NATRIURETIC PEPTIDE STAT 08/25/2017 11:50 Acute on chronic Results for this AM INTERIOR PANELER systolic heart procedure are in failure the results section. BASIC METABOLIC PANEL STAT 08/25/2017 11:50 Acute on chronic Results for this AM INTERIOR PANELER systolic heart procedure are in failure the results section. CONSULT CARDIAC REHAB Routine 08/17/2017 1:20 PHASE 1 PM INTERIOR PANELER ESTIMATED GFR Routine 08/17/2017 4:50 Results for this AM INTERIOR PANELER procedure are in the results section. B NATRIURETIC PEPTIDE Routine 08/17/2017 4:50 Results for this AM INTERIOR PANELER procedure are in the results section. MAGNESIUM LEVEL Routine 08/17/2017 4:50 Results for this AM INTERIOR PANELER procedure are in the results section. BASIC METABOLIC PANEL Routine 08/17/2017 4:50 Results for this AM INTERIOR PANELER procedure are in the results section. ECG PRE/POST OP Routine 08/16/2017 6:23 Results for this PM INTERIOR PANELER procedure are in the results section. XR CHEST 1 VW PORTABLE Routine 08/16/2017 5:59 Results for this PM INTERIOR PANELER procedure are in the results section. EP AICD IMPLANT SINGLE Routine 08/16/2017 4:21 Results for this DUAL BI VENT PM INTERIOR PANELER procedure are in the results section. ECG PRE/POST OP STAT 08/16/2017 2:53 Results for this PM INTERIOR PANELER procedure are in the results section. POTASSIUM LEVEL Routine 08/16/2017 9:16 Results for this AM INTERIOR PANELER procedure are in the results section. HC COMPLETE BLD COUNT Routine 08/16/2017 6:25 Results for this W/AUTO DIFF AM INTERIOR PANELER procedure are in the results section. ESTIMATED GFR Routine 08/16/2017 4:00 Results for this AM INTERIOR PANELER procedure are in the results section. MAGNESIUM LEVEL Routine 08/16/2017 4:00 Results for this AM INTERIOR PANELER procedure are in the results section. BASIC METABOLIC PANEL Routine 08/16/2017 4:00 Results for this AM INTERIOR PANELER procedure are in the results section. HC COMPLETE BLD COUNT Routine 08/15/2017 5:14 Results for this W/AUTO DIFF AM INTERIOR PANELER procedure are in the results section. B NATRIURETIC PEPTIDE Routine 08/15/2017 5:11 Results for this AM INTERIOR PANELER procedure are in the results section. ESTIMATED GFR Routine 08/15/2017 4:00 Results for this AM INTERIOR PANELER procedure are in the results section. MAGNESIUM LEVEL Routine 08/15/2017 4:00 Results for this AM INTERIOR PANELER procedure are in the results section. BASIC METABOLIC PANEL Routine 08/15/2017 4:00 Results for this AM INTERIOR PANELER procedure are in the results section. PHOSPHORUS LEVEL Timed 08/14/2017 4:00 Results for this PM INTERIOR PANELER procedure are in the results section. POTASSIUM LEVEL Timed 08/14/2017 4:00 Results for this PM INTERIOR PANELER procedure are in the results section. HC COMPLETE BLD COUNT Routine 08/14/2017 5:30 Results for this W/AUTO DIFF AM INTERIOR PANELER procedure are in the results section. ESTIMATED GFR Routine 08/14/2017 4:00 Results for this AM INTERIOR PANELER procedure are in the results section. PHOSPHORUS LEVEL Routine 08/14/2017 4:00 Results for this AM INTERIOR PANELER procedure are in the results section. MAGNESIUM LEVEL Routine 08/14/2017 4:00 Results for this AM INTERIOR PANELER procedure are in the results section. BASIC METABOLIC PANEL Routine 08/14/2017 4:00 Results for this AM INTERIOR PANELER procedure are in the results section. HC COMPLETE BLD COUNT Routine 08/13/2017 5:25 Results for this W/AUTO DIFF AM INTERIOR PANELER procedure are in the results section. ESTIMATED GFR Routine 08/13/2017 4:00 Results for this AM INTERIOR PANELER procedure are in the results section. PHOSPHORUS LEVEL Routine 08/13/2017 4:00 Results for this AM INTERIOR PANELER procedure are in the results section. MAGNESIUM LEVEL Routine 08/13/2017 4:00 Results for this AM INTERIOR PANELER procedure are in the results section. BASIC METABOLIC PANEL Routine 08/13/2017 4:00 Results for this AM INTERIOR PANELER procedure are in the results section. ECG 12-LEAD Routine 08/12/2017 12:15 Results for this PM INTERIOR PANELER procedure are in the results section. HC COMPLETE BLD COUNT Routine 08/12/2017 5:18 Results for this W/AUTO DIFF AM INTERIOR PANELER procedure are in the results section. ESTIMATED GFR Routine 08/12/2017 4:00 Results for this AM INTERIOR PANELER procedure are in the results section. BASIC METABOLIC PANEL Routine 08/12/2017 4:00 Results for this AM INTERIOR PANELER procedure are in the results section. POTASSIUM LEVEL Routine 08/11/2017 3:55 Results for this PM INTERIOR PANELER procedure are in the results section. HC COMPLETE BLD COUNT Routine 08/11/2017 5:58 Results for this W/AUTO DIFF AM INTERIOR PANELER procedure are in the results section. ESTIMATED GFR Routine 08/11/2017 5:58 Results for this AM INTERIOR PANELER procedure are in the results section. BASIC METABOLIC PANEL Routine 08/11/2017 5:58 Results for this AM INTERIOR PANELER procedure are in the results section. CV RIGHT HEART CATH Routine 08/10/2017 3:09 Results for this PM INTERIOR PANELER procedure are in the results section. HC COMPLETE BLD COUNT Routine 08/10/2017 5:30 Results for this W/AUTO DIFF AM INTERIOR PANELER procedure are in the results section. ESTIMATED GFR Routine 08/10/2017 4:00 Results for this AM INTERIOR PANELER procedure are in the results section. PHOSPHORUS LEVEL Routine 08/10/2017 4:00 Results for this AM INTERIOR PANELER procedure are in the results section. MAGNESIUM LEVEL Routine 08/10/2017 4:00 Results for this AM INTERIOR PANELER procedure are in the results section. BASIC METABOLIC PANEL Routine 08/10/2017 4:00 Results for this AM INTERIOR PANELER procedure are in the results section. XR CHEST 1 VW PORTABLE Routine 08/09/2017 8:40 Results for this PM INTERIOR PANELER procedure are in the results section. PROTHROMBIN TIME WITH Routine 08/09/2017 5:05 Results for this INR PM INTERIOR PANELER procedure are in the results section. PARTIAL THROMBOPLASTIN Routine 08/09/2017 5:05 Results for this TIME (PTT) PM INTERIOR PANELER procedure are in the results section. ESTIMATED GFR Routine 08/09/2017 5:05 Results for this PM INTERIOR PANELER procedure are in the results section. CBC HEMOGRAM Routine 08/09/2017 5:05 Results for this PM INTERIOR PANELER procedure are in the results section. THYROID STIMULATING Routine 08/09/2017 5:05 Results for this HORMONE PM INTERIOR PANELER procedure are in the results section. T4, FREE Routine 08/09/2017 5:05 Results for this PM INTERIOR PANELER procedure are in the results section. COMPREHENSIVE METABOLIC Routine 08/09/2017 5:05 Results for this PANEL PM INTERIOR PANELER procedure are in the results section. B NATRIURETIC PEPTIDE Routine 08/09/2017 5:05 Results for this PM INTERIOR PANELER procedure are in the results section. after 03/15/2017 Results Estimated GFR (08/25/2017 11:50 AM)Only the most recent of10 resultswithin the time period is included. GFR Non Af Amer 73 mL/min/1.73 m2 [facility] DEPARTMENT OF PATHOLOGY AND GENOMIC MEDICINE GFR Af Amer 88 mL/min/1.73 m2 [facility] DEPARTMENT OF Comment: PATHOLOGY AND GENOMIC [...] Americans. Specimen Plasma specimen Performing Organization Address City/[facility] Phone Number [facility] DEPARTMENT OF PATHOLOGY AND [address] [place] [address] B natriuretic peptide (08/25/2017 11:50 AM)Only the most recent of4 resultswithin the time period is included. BNP 558 (H) 0 - 100 pg/mL [facility] DEPARTMENT OF PATHOLOGY AND [employer] [facility] Specimen Blood Performing Organization Address [facility] Phone Number [facility] DEPARTMENT OF [facility] AND [address] [place] [address] Magnesium level (08/25/2017 11:50 AM)Only the most recent of7 resultswithin the time period is included. Magnesium 2.1 1.6 - 2.4 mg/dL [facility] DEPARTMENT OF PATHOLOGY AND [employer] MEDICINE Specimen Plasma specimen Performing Organization Address [facility] Phone Number [facility] DEPARTMENT OF PATHOLOGY AND [address] [place] [address] Basic metabolic panel (08/25/2017 11:50 AM)Only the most recent of9 resultswithin the time period is included. Sodium 139 135 - 148 mEq/L [facility] DEPARTMENT OF PATHOLOGY AND GENOMIC MEDICINE Potassium 4.1 3.5 - 5.0 mEq/L [facility] DEPARTMENT OF PATHOLOGY AND GENOMIC MEDICINE Chloride 96 (L) 98 - 112 mEq/L [facility] DEPARTMENT OF PATHOLOGY AND GENOMIC MEDICINE CO2 33 (H) 24 - 31 mEq/L [facility] DEPARTMENT OF PATHOLOGY AND GENOMIC MEDICINE Anion gap 10 7 - 15 mEq/L [facility] DEPARTMENT OF PATHOLOGY Comment: [facility] Starting from October , anion gap calculation no longer incorporates potassium. Please note the change. BUN 25 (H) 8 - 23 mg/dL [facility] DEPARTMENT OF PATHOLOGY AND GENOMIC MEDICINE Creatinine 1.0 0.7 - 1.2 mg/dL [facility] DEPARTMENT OF PATHOLOGY AND GENOMIC MEDICINE Glucose 89 65 - 99 mg/dL [facility] DEPARTMENT OF PATHOLOGY AND GENOMIC MEDICINE Calcium 9.4 8.8 - 10.2 mg/dL [facility] DEPARTMENT OF PATHOLOGY AND GENOMIC MEDICINE Specimen Plasma specimen Performing Organization Address [facility] Phone Number [facility] DEPARTMENT OF PATHOLOGY AND [address] [place] [phone] GENOMIC MEDICINE ECG Pre/Post Op-Tomorrow (08/16/2017 6:23 PM)Only the most recent of2 resultswithin the time period is included. Ventricular rate 64 [facility] M[facility] Atrial rate 71 [facility] QRSD interval 106 [facility] QT interval 452 [facility] QTC interval 466 [facility] QRS axis 1 67 [facility] T wave axis 162 [facility] EKG impression Atrial fibrillation with premature [facility] M[facility] ventricular or aberrantly conducted complexes-Possible Inferior infarct (cited on or before 31-OCT-2014)-Nonspecific T wave abnormality- Performing Organization Address [facility] Phone Number [facility]USE [address] [place] [address] XR Chest 1 Vw Portable (08/16/2017 5:59 [...] congestion with no signs of pulmonary edema. [id number] Procedure Note Interface, Radiology Results Incoming - 08/16/2017 6:11 PM INTERIOR PANELER EXAMINATION: Portable chest x-ray CLINICAL HISTORY: Pneumothorax COMPARISON: Most recent available chest x-ray. The heart is moderately enlarged. ICD electrode is in stable position. There are degenerative changes in the dorsal spine. IMPRESSION: 1. There is no pneumothorax. 2. No pleural fluid. 3. There is mild vascular congestion with no signs of pulmonary edema. [id number] Performing Organization Address [facility] Phone Number [facility] [address] [place] [address] Cv electrophysiology procedure (08/16/2017 4:21 PM) Narrative [...] a scalpel, cautery, and blunt dissection.Using the [id number] technique and an introducer sheath, a defibrillation [...] right ventricular apical defibrillation lead is a [employer] [place] 4-site G, model 0296, serial #[id number].Measured R-wave 5.3 millivolt, pacing threshold 0.6 volt, current 1.0 mA, impedance 664 ohms. 2.Defibrillator is a [employer] Vigilant EL ICD model Delta D232, serial #[id number]. 3.Defibrillator safety threshold testing not performed due to inability to anticoagulate because of hematuria. CONCLUSIONS: Successful ICD placement. RECOMMENDATIONS: Once he can accept oral anticoagulation for a sufficient duration, we will bring him back for outpatient DFT assessment. Performing Organization Address City/[facility] Phone Number [facility] [address] [place] [address] Potassium level (08/16/2017 9:16 AM)Only the most recent of3 resultswithin the time period is included. Potassium 4.0 3.5 - 5.0 mEq/L [facility] DEPARTMENT OF PATHOLOGY AND GENOMIC MEDICINE Specimen Plasma specimen Performing Organization Address City/[facility]/Zipcode Phone Number [facility] DEPARTMENT OF PATHOLOGY AND [address] [place] [address] [facility] CBC with platelet and differential (08/16/2017 6:25 AM)Only the most recent of7 resultswithin the time period is included. WBC 5.87 4.50 - 11.00 k/uL [facility] DEPARTMENT OF PATHOLOGY AND GENOMIC MEDICINE RBC 3.45 (L) 4.40 - 6.00 m/uL [facility] DEPARTMENT OF PATHOLOGY AND GENOMIC MEDICINE HGB 10.3 (L) 14.0 - 18.0 g/dL [facility] DEPARTMENT OF PATHOLOGY AND GENOMIC MEDICINE HCT 31.9 (L) 41.0 - 51.0 % [facility] DEPARTMENT OF PATHOLOGY AND GENOMIC MEDICINE MCV 92.5 82.0 - 100.0 fL [facility] DEPARTMENT OF PATHOLOGY AND GENOMIC MEDICINE MCH 29.9 27.0 - 34.0 pg [facility] DEPARTMENT OF PATHOLOGY AND GENOMIC MEDICINE MCHC 32.3 31.0 - 37.0 g/dL [facility] DEPARTMENT OF PATHOLOGY AND GENOMIC MEDICINE RDW - SD 55.8 (H) 37.0 - 55.0 fL [facility] DEPARTMENT OF PATHOLOGY AND GENOMIC MEDICINE MPV 12.1 8.8 - 13.2 fL [facility] DEPARTMENT OF PATHOLOGY AND GENOMIC MEDICINE Platelet count 92 (L) 150 - 400 k/uL [facility] DEPARTMENT OF PATHOLOGY AND GENOMIC MEDICINE Nucleated RBC 0.00 /100 WBC [facility] DEPARTMENT OF PATHOLOGY AND GENOMIC MEDICINE Neutrophils 68.7 39.0 - 69.0 % [facility] DEPARTMENT OF PATHOLOGY AND GENOMIC MEDICINE Lymphocytes 13.3 (L) 25.0 - 45.0 % [facility] DEPARTMENT OF PATHOLOGY AND GENOMIC MEDICINE Monocytes 9.7 0.0 - 10.0 % [facility] DEPARTMENT OF PATHOLOGY AND GENOMIC MEDICINE Eosinophils 6.8 (H) 0.0 - 5.0 % [facility] DEPARTMENT OF PATHOLOGY AND GENOMIC MEDICINE Basophils 1.2 (H) 0.0 - 1.0 % [facility] DEPARTMENT OF PATHOLOGY AND GENOMIC MEDICINE Immature granulocytes 0.3Comment: 0.0 - 1.0 % [facility] DEPARTMENT OF "Immature PATHOLOGY AND GENOMIC granulocytes" MEDICINE (promyelocytes, myelocytes, metamyelocytes) Specimen Blood Performing Organization Address City/[facility] Phone Number [facility] DEPARTMENT OF PATHOLOGY AND [address] [place] [phone] GENOMIC MEDICINE Phosphorus level (08/14/2017 4:00 PM)Only the most recent of4 resultswithin the time period is included. Phosphorus 2.9 2.4 - 4.5 mg/dL [facility] DEPARTMENT OF PATHOLOGY AND GENOMIC MEDICINE Specimen Plasma specimen Performing Organization Address City/[facility]/Zipcode Phone Number [facility] DEPARTMENT PATHOLOGY AND [address] [place] [phone] GENOMIC MEDICINE ECG 12 lead (08/12/2017 12:15 [...] or before 31-OCT-2014)-ST & T wave abnormality [facility] MUSE , consider anterolateral ischemia-Prolonged QT-Abnormal ECG-In automated comparison with ECG of 01-NOV-2014 08:17,-QT has lengthened- Performing Organization Address City/[facility] [place] Phone Number [facility] [address] [place] [address] Cv blood and plasma laboratory assistant procedure (08/10/2017 3:09 PM) Narrative Performed At [...] Milrinone and IV Lasix Performing Organization Address [facility] Phone Number [facility] [address] [place] [address] Partial thromboplastin time, activated (08/09/2017 5:05 PM) PTT 36.0 23.0 - 36.0 sec [facility] DEPARTMENT OF PATHOLOGY Comment: AND GENOMIC MEDICINE PTT therapeutic range for unfractionated heparin is 61.0-112.0 seconds which corresponds to Anti-Xa 0.3-0.7 U/ml. Specimen Blood Performing Organization Address [facility] [place] Phone Number [facility] DEPARTMENT OF PATHOLOGY AND [address] [place] [phone] GENOMIC MEDICINE Prothrombin time with INR (08/09/2017 5:05 PM) Prothrombin time 17.7 (H) 12.0 - 15.0 sec [facility] DEPARTMENT OF PATHOLOGY AND GENOMIC MEDICINE INR 1.4 [facility] DEPARTMENT OF Comment: PATHOLOGY AND GENOMIC The International Normalized Ratio (INR) is a therapeutic MEDICINE monitoring tool for patients who are stable on oral anticoagulant therapy. An INR of 2.0-3.0 is suggested for deep vein thrombosis/pulmonary embolism. Specimen Blood Performing Organization Address [facility]/State/[facility] [place] Phone Number [facility] DEPARTMENT OF PATHOLOGY AND [address] [place] [address] CBC hemogram (08/09/2017 5:05 PM) WBC 7.03 4.50 - 11.00 k/uL [facility] DEPARTMENT OF PATHOLOGY AND GENOMIC MEDICINE RBC 3.68 (L) 4.40 - 6.00 m/uL [facility] DEPARTMENT OF PATHOLOGY AND GENOMIC MEDICINE HGB 11.0 (L) 14.0 - 18.0 g/dL [facility] DEPARTMENT OF PATHOLOGY AND GENOMIC MEDICINE HCT 34.5 (L) 41.0 - 51.0 % [facility] DEPARTMENT OF PATHOLOGY AND GENOMIC MEDICINE MCV 93.8 82.0 - 100.0 fL [facility] DEPARTMENT OF PATHOLOGY AND GENOMIC MEDICINE MCH 29.9 27.0 - 34.0 pg [facility] DEPARTMENT OF PATHOLOGY AND GENOMIC MEDICINE MCHC 31.9 31.0 - 37.0 g/dL [facility] DEPARTMENT OF PATHOLOGY AND GENOMIC MEDICINE RDW - SD 58.0 (H) 37.0 - 55.0 fL [facility] DEPARTMENT OF PATHOLOGY AND GENOMIC MEDICINE MPV 11.8 8.8 - 13.2 fL [facility] DEPARTMENT OF PATHOLOGY AND GENOMIC MEDICINE Platelet count 110 (L) 150 - 400 k/uL [facility] DEPARTMENT OF PATHOLOGY AND GENOMIC MEDICINE Nucleated RBC 0.00 /100 WBC [facility] DEPARTMENT OF PATHOLOGY AND GENOMIC MEDICINE Specimen Blood Performing Organization Address [facility] [place] Phone Number [facility] DEPARTMENT OF PATHOLOGY AND [address] [place] [address] Thyroid stimulating hormone (08/09/2017 5:05 PM) TSH 13.20 (H) 0.27 - 4.20 uIU/mL [facility] DEPARTMENT OF PATHOLOGY AND GENOMIC MEDICINE Specimen Plasma specimen Performing Organization Address City/[facility] [place] Phone Number [facility] DEPARTMENT OF PATHOLOGY AND [address] [place] [address] T4, free (08/09/2017 5:05 PM) T4, free 0.9 0.9 - 1.7 ng/dL [facility] DEPARTMENT OF PATHOLOGY AND GENOMIC MEDICINE Specimen Plasma specimen Performing Organization Address [facility] Phone Number [facility] DEPARTMENT OF PATHOLOGY AND [address] [place] [address] Comprehensive metabolic panel (08/09/2017 5:05 PM) Sodium 141 135 - 148 mEq/L [facility] DEPARTMENT OF PATHOLOGY AND GENOMIC MEDICINE Potassium 3.6 3.5 - 5.0 mEq/L [facility] DEPARTMENT OF PATHOLOGY AND GENOMIC MEDICINE Chloride 97 (L) 98 - 112 mEq/L [facility] DEPARTMENT OF PATHOLOGY AND GENOMIC MEDICINE CO2 33 (H) 24 - 31 mEq/L [facility] DEPARTMENT OF PATHOLOGY AND GENOMIC MEDICINE Anion gap 11 7 - 15 mEq/L [facility] DEPARTMENT OF Comment: PATHOLOGY AND GENOMIC Starting from October , anion gap calculation MEDICINE no longer incorporates potassium. Please note the change. BUN 24 (H) 8 - 23 mg/dL [facility] DEPARTMENT OF PATHOLOGY AND GENOMIC MEDICINE Creatinine 1.2 0.7 - 1.2 mg/dL [facility] DEPARTMENT OF PATHOLOGY AND GENOMIC MEDICINE Glucose 132 (H) 65 - 99 mg/dL [facility] DEPARTMENT OF PATHOLOGY AND GENOMIC MEDICINE Calcium 9.9 8.8 - 10.2 mg/dL [facility] DEPARTMENT OF PATHOLOGY AND GENOMIC MEDICINE Protein 7.4 6.3 - 8.3 g/dL [facility] DEPARTMENT OF Comment: PATHOLOGY AND GENOMIC [place] 4.6-7.0 g/dL MEDICINE 1 week 4.4-7.6 g/dL 7 months-1year5.1-7.3 g/dL 1-2 years5.6-7.5 g/dL >3 years6.0-8.0 g/dL 18-150 6.3-8.3 g/dL Albumin 3.1 (L) 3.5 - 5.0 g/dL [facility] DEPARTMENT OF PATHOLOGY AND GENOMIC MEDICINE A/G ratio 0.7 0.7 - 3.8 [facility] DEPARTMENT OF PATHOLOGY AND GENOMIC MEDICINE Alkaline phosphatase 69 40 - 129 U/L [facility] DEPARTMENT OF PATHOLOGY AND GENOMIC MEDICINE AST 24 10 - 50 U/L [facility] DEPARTMENT OF PATHOLOGY AND GENOMIC MEDICINE ALT 13 5 - 50 U/L [facility] DEPARTMENT OF PATHOLOGY AND GENOMIC MEDICINE Total bilirubin 1.0 0.0 - 1.2 mg/dL [facility] DEPARTMENT OF PATHOLOGY AND GENOMIC MEDICINE Specimen Plasma specimen Performing Organization Address City/State/Zipcode Phone Number [facility] DEPARTMENT OF PATHOLOGY AND [address] [place] [address] GENOMIC [facility] after 03/15/2017 Insurance Payer Benefit Plan / Group Subscriber ID Type Phone Address [employer] MEDICARE HU[employer]NA MEDICARE PPO/PFFS/ERS [facility] xxxxxxxxx PPO Home: [id number] [phone] [place] [id number]
[2018-03-16 15:36] LABS: Absolute Lymphocytes (CBC) 0.6 K/uL (0.7-4.9); Absolute Monocytes 0.6 K/uL (0.1-1.3); Absolute Neutrophil 4.6 K/uL (1.8-8.0); Basophils % 1.2 % (0-1.3); Eosinophils % 2.9 % (0-4.4); Hematocrit 26.2 % (39.6-49.0); Lymphocytes % 9.5 % (15.3-44.8); MCH 28.9 pg (27.0-35.0); MCV 90.1 fL (80-100); MPV 8.9 fL (7.6-11.3); Monocytes % 10.6 % (3.3-12.3)
[2018-03-16 15:39] LABS: ALT/SGPT 15 U/L (12-78); AST/SGOT 21 U/L (15-37); Albumin 3.3 g/dL (3.4-5.0); Alkaline Phosphatase 101 U/L (45-117); BUN Blood Urea Nitrogen 20 mg/dL (7-18); Bicarbonate 23 mmol/L (21-32); Bilirubin Direct 0.4 mg/dL (0-0.2); CKMB Creatine Kinase MB 1.3 ng/mL (0.3-3.6); Creatine Phosphokinase 47 U/L (39-308); Glucose Level 93 mg/dL (74-106); Lipase 152 U/L (73-393); Magnesium 2.2 mg/dL (1.8-2.4); NT PRO-BNP 4361 pg/mL (<450); Potassium 4.9 mmol/L (3.5-5.1); Protein, Total 7.2 g/dL (6.4-8.2); Protime INR 1.38; Sodium Level 139 mmol/L (136-145); Troponin (Emerg Dept Use Only) < 0.02 ng/mL (0.0-0.045)
--- NOTE | 2018-03-16 15:45 | RAD REPORT ---
EXAM DESCRIPTION: CT - Stone Protocol - 03/16/2018 3:30 pm CLINICAL HISTORY: Flank pain. ABD PAIN COMPARISON: Stone Protocol dated 05/05/2017 TECHNIQUE: Axial images were obtained without oral or IV contrast. Lack of contrast limits solid org an and vascular assessment. The [id number] spans the entirety of the system partially obscuring uppermost abdomen and lung bases. Coronal reformatted images were obtained and reviewed. All CT scans are performed using dose optimization technique as appropriate and may include automated exposure control or mA/KV adjustment according to patient size. FINDINGS: The lower lung talamantes are clear. Moderate cardiomegaly is noted. Pacemaker wires are seen. Mild to moderate ascites is present. Noncontrast assessment of the liver, spleen, pancreas, adrenal g lands and kidneys are within normal limits. Fluid retention pattern is noted in the abdominal wall as well. This would indicate mild anasarca. Fl uid is noted in the scrotum. No significant bony abnormality. IMPRESSION: Fluid retention pattern is noted with anasarca, mild ascites and scrotal hydroceles note d.
--- NOTE | 2018-03-16 16:13 | ER ---
Nurse's Notes [facility] Name: Atul Burton Sr Age: 77 yrs Sex: Male : 1940 Arrival Date: 03/16/2018 Time: 13:53 Bed 28 Private MD: Christian Valladares R Diagnosis: Ascites;Edema, unspecified;Obesity, unspecified;Anemia, unspecified Presentation: 03/16 14:03 Presenting complaint: Patient states: "my testicles started swelling up about 3 days aa5 ago". Pt also reports testicular pain. Transition of care: patient was not received from another setting of care. Onset of symptoms was March 2018. Risk Assessment: Do you want to hurt yourself or someone else? Patient reports no desire to harm self or others. Initial Sepsis Screen: Does the patient meet any 2 criteria? No. Patient's initial sepsis screen is negative. Does the patient have a suspected source of infection? No. Patient's initial sepsis screen is negative. Care prior to arrival: None. 14:03 Method Of Arrival: Wheelchair aa5 14:03 Acuity: KASI 3 aa5 Historical: - Allergies: 14:04 PENICILLINS; aa5 - PMHx: 14:04 Anxiety; CHF; Depression; Hypertension; pacemaker/defibrillator; aa5 - PSHx: 14:04 triple bypass; aa5 - Immunization history:: Adult Immunizations unknown. - Social history:: Smoking status: Patient/guardian denies using tobacco. - Ebola Screening: : No symptoms or risks identified at this time. Screenin:42 Abuse screen: Denies threats or abuse. Nutritional screening: No deficits noted. tl3 Tuberculosis screening: No symptoms or risk factors identified. Fall Risk None identified. Assessment: 14:42 General: Appears uncomfortable, obese, well groomed, well developed, well nourished, tl3 Behavior is calm, cooperative, appropriate for age. Pain: Complains of pain in buttocks, abdomen, pelvis, right leg and left leg. Neuro: Level of Consciousness is awake, alert, obeys commands, Oriented to person, place, time, situation, Appropriate for age. Cardiovascular: Patient's skin is warm and dry. Respiratory: Airway is patent Respiratory effort is even, labored, Respiratory pattern is regular, symmetrical. GI: Abdomen is round distended. : No signs and/or symptoms were reported regarding the genitourinary system. EENT: No signs and/or symptoms were reported regarding the EENT system. Derm: pt is swollen, legs with tension fontaine. Musculoskeletal: No signs and/or symptoms reported regarding the musculoskeletal system. 16:00 Reassessment: Patient appears in no apparent distress at this time. Patient and/or mg2 family updated on plan of care and expected duration. Pain level reassessed. Patient is alert, oriented x 3, equal unlabored respirations, skin warm/dry/pink. 17:00 Reassessment: Patient appears in no apparent distress at this time. Patient and/or mg2 family updated on plan of care and expected duration. Pain level reassessed. Patient is alert, oriented x 3, equal unlabored respirations, skin warm/dry/pink. 18:55 Reassessment: blood transfusion started. patient tolerated the transfusion well. no mg2 reaction noted. Vital Signs: 14:04 BP 111 / 58; Pulse 76; Resp 20 S; Temp 97.1(TE); Pulse Ox 100% on 2 lpm NC; Weight aa5 120.2 kg (R); Height 5 ft. 9 in. (175.26 cm) (R); Pain 2/10; 14:54 BP 147 / 74; Pulse 86; Resp 20; Pulse Ox 98% on 2 lpm NC; tl3 17:14 BP 157 / 89; Pulse 96; Resp 20; Pulse Ox 100% on 3 lpm NC; Pain 0/10; mg2 18:34 BP 142 / 86; Pulse 84; Resp 20; Pulse Ox 100% on 3 lpm NC; Pain 0/10; mg2 19:40 BP 123 / 78; Pulse 85; Resp 20; Temp 97.7; Pulse Ox 100% on 3 lpm NC; Pain 0/10; mg2 14:04 Body Mass Index 39.13 (120.20 kg, 175.26 cm) aa5 ED Course: 13:53 Patient arrived in ED. rg4 13:53 Christian Valladares MD is Private Physician. rg4 14:03 Triage completed. aa5 14:03 Arm band placed on. aa5 14:41 Paul Garcia MD is Attending Physician. [facility] 14:42 [place], PADMAJA is Primary Nurse. tl3 14:42 Patient has correct armband on for positive identification. Placed in gown. Bed in low tl3 position. Call light in reach. Side rails up X2. Pulse ox on. NIBP on. 14:42 No provider procedures requiring assistance completed. tl3 14:42 EKG done, by registered dietetic technician. tl3 15:[address] nj 15:12 Inserted saline lock: 20 gauge in left forearm, using aseptic technique. Blood tl3 collected. 15:28 CT completed. Patient tolerated procedure well. Patient moved back from [place]. me 15:[address] In Process Unspecified. EDMS 16:04 XRAY Chest (1 view) In Process Unspecified. EDMS 16:11 Christian Valladares MD is Hospitalizing Provider. [facility] 16:20 ordered bariatric bed. confirmation number [id number]. bd 17:15 Urine collected: romansh 16 fc inserted. mg2 20:38 Patient admitted, IV remains in place. mg2 Administered Medications: 17:14 Drug: Lasix 40 mg Route: IVP; Site: left forearm; mg2 18:29 Follow up: Response: No adverse reaction; Marked relief of symptoms mg2 17:14 Drug: Spironolactone 100 mg Route: PO; mg2 18:29 Follow up: Response: No adverse reaction; Marked relief of symptoms mg2 Outcome: 16:13 Decision to Hospitalize by Provider. maynor 20:20 Admitted to Tele accompanied by nurse, accompanied by tech, via stretcher, room 426, mg2 with oxygen, with chart, Report called to PADMAJA Cummings 20:39 Condition: stable mg2 20:39 Instructed on the need for admit. 20:39 Patient left the ED. mg2 Signatures: Dispatcher [employer] EDMS Mónica Steve Corey, MD MD cha Calderon, Audri, RN RN aa5 Ellen Hernandez Nathan nj Lowrey, Tammy, RN RN tl3 Yuniel Perkins, RN RN mg2 Corrections: (The following items were deleted from the chart) 14:18 14:04 BP 111 / 58; Pulse 76bpm; Resp 20bpm; Spontaneous; Pulse Ox 100% RA; Temp 97.1F aa5 Temporal; 120.2 kg Reported; Height 5 ft. 9 in. Reported; BMI: 39.1; Pain 2/10; aa5
--- NOTE | 2018-03-16 16:13 | EDPHYS ---
Physician Documentation [facility] Name: Atul Burton Sr Age: 77 yrs Sex: Male : 1940 Arrival Date: 03/16/2018 Time: 13:53 Bed 28 Private MD: Christian Valladares R ED Physician Paul Garcia HPI: 03/16 16:03 This 77 yrs old Male presents to ER via Wheelchair with complaints of maynor Testicular Swelling. 16:03 The patient presents with scrotal pain, swelling, tenderness, of the shaft of penis, maynor left testicle and right testicle. Onset: The symptoms/episode began/occurred 1 week(s) ago. Modifying factors: The symptoms are alleviated by nothing, the symptoms are aggravated by nothing. Historical: - Allergies: 14:04 PENICILLINS; aa5 - PMHx: 14:04 Anxiety; CHF; Depression; Hypertension; pacemaker/defibrillator; aa5 - PSHx: 14:04 triple bypass; aa5 - Immunization history:: Adult Immunizations unknown. - Social history:: Smoking status: Patient/guardian denies using tobacco. - Ebola Screening: : No symptoms or risks identified at this time. ROS: 16:03 Constitutional: Negative for fever, chills, and weight loss, Eyes: Negative for injury, maynor pain, redness, and discharge, ENT: Negative for injury, pain, and discharge, Neck: Negative for injury, pain, and swelling, Cardiovascular: Negative for chest pain, palpitations, and edema, Respiratory: Negative for shortness of breath, cough, wheezing, and pleuritic chest pain, Back: Negative for injury and pain, Neuro: Negative for headache, weakness, numbness, tingling, and seizure, Psych: Negative for depression, anxiety, suicide ideation, homicidal ideation, and hallucinations, Allergy/Immunology: Negative for hives, rash, and allergies, Endocrine: Negative for neck swelling, polydipsia, polyuria, polyphagia, and marked weight changes. 16:03 Abdomen/GI: Positive for abdominal distension. 16:03 : Positive for penile pain, testicular pain of the pelvis, right leg and left leg. 16:03 MS/extremity: Positive for decreased range of motion, pain, swelling, tenderness, of the abdomen, right leg and left leg. Exam: 16:03 Head/Face: Normocephalic, atraumatic. Eyes: Pupils equal round and reactive to light, maynor extra-ocular motions intact. Lids and lashes normal. Conjunctiva and sclera are non-icteric and not injected. Cornea within normal limits. Periorbital areas with no swelling, redness, or edema. ENT: Nares patent. No nasal discharge, no septal abnormalities noted. Tympanic membranes are normal and external auditory canals are clear. Oropharynx with no redness, swelling, or masses, exudates, or evidence of obstruction, uvula midline. Mucous membranes moist. Neck: Trachea midline, no thyromegaly or masses palpated, and no cervical lymphadenopathy. Supple, full range of motion without nuchal rigidity, or vertebral point tenderness. No Meningismus. Chest/axilla: Normal chest wall appearance and motion. Nontender with no deformity. No lesions are appreciated. Cardiovascular: Regular rate and rhythm with a normal S1 and S2. No gallops, murmurs, or rubs. Normal PMI, no JVD. No pulse deficits. Respiratory: Lungs have equal breath sounds bilaterally, clear to auscultation and percussion. No rales, rhonchi or wheezes noted. No increased work of breathing, no retractions or nasal flaring. 16:03 Abdomen/GI: Inspection: distension, Bowel sounds: normal, Palpation: mild abdominal tenderness, in the right upper quadrant, left upper quadrant, right lower quadrant and left lower quadrant, Liver: no appreciated palpable abnormalities, Hernia: not appreciated, tense ascites. Vital Signs: 14:04 BP 111 / 58; Pulse 76; Resp 20 S; Temp 97.1(TE); Pulse Ox 100% on 2 lpm NC; Weight aa5 120.2 kg (R); Height 5 ft. 9 in. (175.26 cm) (R); Pain 2/10; 14:54 BP 147 / 74; Pulse 86; Resp 20; Pulse Ox 98% on 2 lpm NC; tl3 17:14 BP 157 / 89; Pulse 96; Resp 20; Pulse Ox 100% on 3 lpm NC; Pain 0/10; mg2 18:34 BP 142 / 86; Pulse 84; Resp 20; Pulse Ox 100% on 3 lpm NC; Pain 0/10; mg2 19:40 BP 123 / 78; Pulse 85; Resp 20; Temp 97.7; Pulse Ox 100% on 3 lpm NC; Pain 0/10; mg2 14:04 Body Mass Index 39.13 (120.20 kg, 175.26 cm) aa5 MDM: 14:41 Patient medically screened. [facility] 16:03 Data reviewed: vital signs, nurses notes, lab test result(s), EKG, radiologic studies, [facility] CT scan, plain films, ultrasound. 03/16 14:58 Order name: Basic Metabolic Panel; Complete Time: 16:06 03/16 14:58 Order name: CBC with Diff; Complete Time: 16:06 03/16 14:58 Order name: Ckmb; Complete Time: 16:06 03/16 14:58 Order name: CPK; Complete Time: 16: 03/16 14:58 Order name: LFT's; Complete Time: 16:06 03/16 14:58 Order name: Magnesium; Complete Time: 16:06 03/16 14:58 Order name: NT PRO-BNP; Complete Time: 16:06 03/16 14:58 Order name: PT-INR; Complete Time: 16:06 03/16 14:58 Order name: Ptt, Activated; Complete Time: 16:06 03/16 14:58 Order name: Troponin (emerg Dept Use Only); Complete Time: 16:06 03/16 14:58 Order name: Lipase; Complete Time: 16:06 03/16 14:58 Order name: Blood Culture Adult (2) 03/16 14:58 Order name: Urine Culture 03/16 15:59 Order name: AMMONIA; Complete Time: 17:16 [facility] 03/16 14:58 Order name: XRAY Chest (1 view) 03/16 14:58 Order name: Stone Protocol CT; Complete Time: 16:06 03/16 16:14 Order name: Type And Screen [facility] 03/16 16:16 Order name: Bb Add On 03/16 16:21 Order name: Basic Metabolic Panel [facility] 03/16 16:21 Order name: Basic Metabolic Panel [facility] 03/16 16:21 Order name: Troponin I [facility] 03/16 16:21 Order name: Troponin I [facility] 03/16 16:21 Order name: Troponin I [facility] 03/16 16:22 Order name: CBC with Automated Diff [facility] 03/16 16:22 Order name: CBC with Automated Diff [facility] 03/16 16:22 Order name: Chest Single View [facility] 03/16 16:22 Order name: Chest Single View [facility] 03/16 16:23 Order name: Packed RBC Leukored -1 [facility] 03/16 17:42 Order name: Urine Dipstick--Ancillary (enter results) 03/16 20:26 Order name: Urine Dipstick-Ancillary [facility] 03/16 14:58 Order name: EKG; Complete Time: 14:59 03/16 14:58 Order name: Cardiac monitoring; Complete Time: 15:14 03/16 14:58 Order name: EKG - Nurse/Tech; Complete Time: 15:31 03/16 14:58 Order name: IV Saline Lock; Complete Time: 15:14 03/16 14:58 Order name: Labs collected and sent; Complete Time: 15:14 03/16 14:58 Order name: O2 Per Protocol; Complete Time: 15:14 03/16 14:58 Order name: O2 Sat Monitoring; Complete Time: 15:14 03/16 14:58 Order name: Urine Dipstick-Ancillary (obtain specimen); Complete Time: 17:14 03/16 16:02 Order name: Hendrickson; Complete Time: 17:14 [facility] 03/16 16:22 Order name: CONS Physician Consult [facility] 03/16 16:22 Order name: EKG Electrocardiogram [facility] 03/16 16:22 Order name: EKG Electrocardiogram [facility] 03/16 16:22 Order name: EKG Electrocardiogram [facility] 03/16 16:22 Order name: EKG Electrocardiogram [facility] Administered Medications: 17:14 Drug: Lasix 40 mg Route: IVP; Site: left forearm; mg2 18:29 Follow up: Response: No adverse reaction; Marked relief of symptoms mg2 17:14 Drug: Spironolactone 100 mg Route: PO; mg2 18:29 Follow up: Response: No adverse reaction; Marked relief of symptoms mg2 Disposition: 03/16/18 16:13 Hospitalization ordered by Christian Valladares for Inpatient Admission. Preliminary diagnosis are Ascites, Edema, unspecified, Obesity, unspecified, Anemia, unspecified. - Bed requested for Telemetry/MedSurg (Inpatient). - Status is Inpatient Admission. mg2 - Condition is Fair. - Problem is chronic. - Symptoms have worsened. UTI on Admission? No Signatures: Dispatcher [employer] EDMS Mónica Stvee Corey, MD MD cha Calderon, Audri RN RN aa5 Kelsey Hall RN RN df Yuniel Perkins RN RN mg2 Corrections: (The following items were deleted from the chart) 18:50 16:13 Hospitalization Ordered by Christian Valladares MD for Inpatient Admission. Preliminary df diagnosis is Ascites; Edema, unspecified; Obesity, unspecified; Anemia, unspecified. Bed requested for Telemetry/MedSurg (Inpatient). Status is Inpatient Admission. Condition is Fair. Problem is chronic. Symptoms have worsened. UTI on Admission? No. [facility] 20:39 18:50 03/16/2018 16:13 Hospitalization Ordered by Christian Valladares MD for Inpatient mg2 Admission. Preliminary diagnosis is Ascites; Edema, unspecified; Obesity, unspecified; Anemia, unspecified. Bed requested for Telemetry/MedSurg (Inpatient). Status is Inpatient Admission. Condition is Fair. Problem is chronic. Symptoms have worsened. UTI on Admission? No. df
[2018-03-16] MEDS ORDERED: ONDANSETRON 4 MG/2 ML VIAL IV PRN (16:17)
[2018-03-16] MEDS ORDERED: ACETAMINOPHEN 500 MG TAB PO PRN (16:17)
[2018-03-16] MEDS ORDERED: FUROSEMIDE 40 MG/4 ML VIAL ONE (16:27)
[2018-03-16] MEDS ORDERED: SPIRONOLACTONE 100 MG TAB PO ONE (17:00)
--- NOTE | 2018-03-16 17:44 | RAD REPORT ---
EXAM DESCRIPTION: RAD - Chest Single View - 03/16/2018 4:04 pm CLINICAL HISTORY: PAIN Chest pain. COMPARISON: Chest Single View dated 07/28/2017; Chest Single View dated 07/02/2017; Chest Single View dated 06/25/2017; Chest Single View dated 05/05/2017 FINDINGS: Portable technique limits examination quality. Mild pulmonary edema is noted. The heart is significantly enlarged in size with a single lead pacer/ defibrillator device. Sternotomy wires present. IMPRESSION: Mild CHF.
--- NOTE | 2018-03-16 17:51 | EKG ---
Test Date: 2018-03-16 Test Time: 14:52:49 Acetylene Torch Operator: RITU MEASUREMENT RESULTS: Intervals: Rate: 87 NM: QRSD: 106 QT: 416 QTc: 500 Alicia: P: NM: QRS: 59 T: 165 INTERPRETIVE STATEMENTS: Atrial fibrillation with a competing junctional pacemaker Cannot rule out Anterior infarct, age undetermined Prolonged QT Abnormal ECG Compared to ECG 01/20/2018 14:09:43 No significant changes Electronically Signed On 03-16-18 17:50:31 CDT by Michi Perales
[2018-03-16] MEDS ORDERED: NA CHLORIDE 0.9% 250 ML ONE (18:54)
[2018-03-16 20:25] LABS: Urine Blood NEGATIVE (NEG); Urine Glucose NEGATIVE (NEG); Urine Protein NEGATIVE (NEG); Urine pH 5.5 (5.0-7.0)
[2018-03-16] MEDS: IPRATROPIUM BROM 0.5MG/2.5ML NEB SCH (20:28)
[2018-03-16] MEDS: LEVALBUTEROL 1.25 MG/3 ML NEB NEB SCH (20:28)
[2018-03-16 21:09] VITALS: BMI 44.9
[2018-03-16] MEDS: POTASSIUM CL SA 10 MEQ TAB PO SCH (22:22)
[2018-03-16] MEDS: FUROSEMIDE 40 MG/4 ML VIAL IV SCH (22:22)
[2018-03-16] MEDS: FAMOTIDINE 20 MG/2 ML VIAL IV SCH (22:23)
[2018-03-17] MEDS: LEVALBUTEROL 1.25 MG/3 ML NEB NEB SCH ×4 (02:00→19:54)
[2018-03-17] MEDS: IPRATROPIUM BROM 0.5MG/2.5ML NEB SCH ×4 (02:00→19:54)
[2018-03-17 04:41] LABS: Absolute Lymphocytes (CBC) 0.6 K/uL (0.7-4.9); Absolute Monocytes 0.8 K/uL (0.1-1.3); Absolute Neutrophil 4.7 K/uL (1.8-8.0); Basophils % 1.5 % (0-1.3); Eosinophils % 2.6 % (0-4.4); Hematocrit 27.7 % (39.6-49.0); Lymphocytes % 8.9 % (15.3-44.8); MCH 29.7 pg (27.0-35.0); MCV 89.2 fL (80-100); MPV 8.4 fL (7.6-11.3); Monocytes % 12.1 % (3.3-12.3); RBC Red Blood Cell Count 3.11 M/uL (4.33-5.43)
[2018-03-17 04:53] LABS: Potassium 4.8 mmol/L (3.5-5.1)
--- NOTE | 2018-03-17 07:02 | CON ---
Date of Consultation: 03/17/2018 Reason For Consultation: Congestive heart failure. History Of Present Illness: Mr. Atul Burton is a 77-year-old white male has a history of coronary a rtery disease status post CABG, history of chronic systolic congestive heart failure, end-stage cardi omyopathy status post defibrillator, has a history of anxiety and depression, and came in with anasar ca, PND, orthopnea, pedal edema. He denied any chest pain, palpitation, or syncope. Past Medical History: As stated above. Allergies: HE IS ALLERGIC TO PENICILLIN. Review of Systems: Negative. Social History: Negative. Family History: Negative. Medications: Include aspirin, Plavix, Coreg, inhalers, Lasix, potassium, Aldactone, and Zaroxolyn. Physical Examination: Vital Signs: He weighed 295 pounds. HEENT: Negative. Neck: Supple with no lymphadenopathy or bruit. Has JVD to the angle of the jaw. Chest: Revealed rales at the bases. Cardiac: Revealed regular rhythm and rate with S3 gallops, no murmurs or rubs. Abdomen: Benign but obese. Extremities: Revealed severe edema with anasarca. Laboratory Data: Hemoglobin was 9.4, BNP was 4361. Last catheterization in May of 2017 showed that all his bypass grafts were open. He had small diffuse disease distally and [place] vessels that are inoperable. Impression And Plan: 1.Acute exacerbation of chronic systolic congestive heart failure. 2.Coronary artery disease that is severe. 3.Status post defibrillators. 4.Anxiety and depression. 5.Atrial fibrillation. I believe this is intermittent. I will discuss the atrial fibrillation issu e with Dr. Valladares. I am not so sure he is a candidate for anticoagulation as I think he has had some bleeding issues in the past. Otherwise, we need to increase his Coreg dose, consider adding Imdur fo r his coronary artery disease, be aggressive with the diuresis. Watch his weight, I's and O's, and c reatinine. Will be arranged for followup on Mr. Burton. He is not a candidate for any further cardia c workup at this point. LORRAINE/JETHROL Voice ID: [id number] Report ID: [id number]
--- NOTE | 2018-03-17 09:05 | RAD REPORT ---
EXAM DESCRIPTION: RAD - Chest Single View - 03/17/2018 6:17 am CLINICAL HISTORY: Chest Pain Chest pain. COMPARISON: Chest Single View dated 03/16/2018; Chest Single View dated 07/28/2017; Chest Single View d ated 07/02/2017; Chest Single View dated 06/25/2017 FINDINGS: Portable technique limits examination quality. Mild interstitial pulmonary edema. The heart is significantly enlarged in size with sternotomy wires present. No displaced fractures.Single lead pacer/ defibrillator device is present. IMPRESSION: Mild CHF/ volume overload pattern.
[2018-03-17] MEDS: ASPIRIN EC 81 MG TAB PO SCH (09:15)
[2018-03-17] MEDS: POTASSIUM CL SA 10 MEQ TAB PO SCH ×2 (09:15→20:47)
[2018-03-17] MEDS: FAMOTIDINE 20 MG/2 ML VIAL IV SCH ×2 (09:15→20:48)
[2018-03-17] MEDS: FUROSEMIDE 40 MG/4 ML VIAL IV SCH ×2 (09:16→17:03)
--- NOTE | 2018-03-17 11:11 | EKG ---
Test Date: 2018-03-17 Test Time: 10:03:52 Solid State Tester: RITU MEASUREMENT RESULTS: Intervals: Rate: 82 IA: QRSD: 106 QT: 438 QTc: 511 [place]: P: IA: QRS: 63 T: 183 INTERPRETIVE STATEMENTS: Atrial fibrillation Cannot rule out Anterior infarct, age undetermined Prolonged QT Abnormal ECG Compared to ECG 03/16/2018 14:52:49 No significant changes Electronically Signed On 03-17-18 11:11:14 CDT by Michi Perales
[2018-03-18] MEDS: LEVALBUTEROL 1.25 MG/3 ML NEB NEB SCH ×5 (02:00→21:25)
[2018-03-18] MEDS: IPRATROPIUM BROM 0.5MG/2.5ML NEB SCH ×5 (02:00→21:25)
--- NOTE | 2018-03-18 05:04 | HP ---
Date of Admission: 03/16/2018 Chief Complaint: Swelling of the body. History Of Present Illness: A 77-year-old male was brought to the emergency room with a swelling of the thighs and perianal area. The patient had evaluation done and the patient is admitted with a jami gnosis of exacerbation of congestive heart failure. The patient is known to have history of congesti ve heart failure. He has chronic atrial fibrillation. The patient could not take anticoagulation be cause of GI bleeding. The patient is known to have coronary artery disease. He already had coronary bypass surgery. Other Medical Problems: Include depression, anxiety. Past Surgical History: Positive for coronary bypass surgery. Allergies: PENICILLIN. Home Medicines: Please refer to the chart. Review of Systems: The patient denied any fever, chills, rigors. Physical Examination: General: Revealed a 77-year-old male, in mild respiratory distress. Vital signs: Otherwise, normal. Afebrile. HEENT: Negative. Neck: Supple. JVD negative. Chest: Basal crackles noted. Heart: Irregularity noted. Abdomen: Ascites present. Extremities: Proximal swelling including scrotal edema noted. Laboratory Data: White count 6.1, hemoglobin 8.4. Chem profile; BUN 20, creatinine 1.1, BNP 4361. Chest x-ray, mild congestive heart failure. CT abdomen, no significant findings other than evidence of anasarca, ascites, and scrotal hydrocele. Assessment: 1.Exacerbation of congestive heart failure. 2.Known coronary artery disease. 3.Known atrial fibrillation. 4.Hypertension. 5.Status post carotid bypass surgery. 6.Anxiety and depression. Plan: The patient is started on IV Lasix. His progress will be monitored. Cardiology Service jo ling saw the patient. DEVIKA/MADHURI Voice ID: [id number]
[2018-03-18] MEDS: LEVOTHYROXINE SOD 0.075 MG TAB PO SCH (06:16)
[2018-03-18] MEDS ORDERED: POTASSIUM CL SA 10 MEQ TAB PO SCH (09:00)
[2018-03-18] MEDS: POTASSIUM CL SA 10 MEQ TAB PO SCH ×2 (09:00→10:03)
[2018-03-18] MEDS: FAMOTIDINE 20 MG/2 ML VIAL IV SCH ×2 (10:02→22:37)
[2018-03-18] MEDS: LISINOPRIL 5 MG TAB PO SCH (10:02)
[2018-03-18] MEDS: FUROSEMIDE 40 MG/4 ML VIAL IV SCH ×2 (10:02→22:37)
[2018-03-18] MEDS: CLOPIDOGREL 75 MG TABLET PO SCH (10:02)
[2018-03-18] MEDS: ASPIRIN EC 81 MG TAB PO SCH (10:03)
[2018-03-18] MEDS: SERTRALINE HCL 100 MG TAB PO SCH (10:03)
[2018-03-18 10:09] LABS: Potassium 4.1 mmol/L (3.5-5.1)
[2018-03-19] MEDS: LEVALBUTEROL 1.25 MG/3 ML NEB NEB SCH ×4 (02:20→22:10)
[2018-03-19] MEDS: IPRATROPIUM BROM 0.5MG/2.5ML NEB SCH ×4 (02:20→22:10)
[2018-03-19] MEDS: LEVOTHYROXINE SOD 0.075 MG TAB PO SCH (06:03)
[2018-03-19] MEDS: FUROSEMIDE 40 MG/4 ML VIAL IV SCH (09:00)
[2018-03-19] MEDS: FAMOTIDINE 20 MG/2 ML VIAL IV SCH (09:00)
[2018-03-19] MEDS: POTASSIUM CL SA 10 MEQ TAB PO SCH (09:44)
[2018-03-19] MEDS: CLOPIDOGREL 75 MG TABLET PO SCH (09:44)
[2018-03-19] MEDS: ASPIRIN EC 81 MG TAB PO SCH (09:45)
[2018-03-19] MEDS: SERTRALINE HCL 100 MG TAB PO SCH (09:45)
[2018-03-19] MEDS: LISINOPRIL 5 MG TAB PO SCH (09:45)
--- NOTE | 2018-03-19 09:49 | PN ---
The patient is doing better. He is afebrile. However, he still has quite a bit of and as cites. The patient will be continued on IV Lasix. DEVIKA/MADHURI Voice ID: [id number] Report ID: [id number]
[2018-03-19] MEDS: FUROSEMIDE 40 MG/4 ML VIAL IM SCH ×2 (11:17→18:02)
--- NOTE | 2018-03-20 00:02 | PN ---
The patient generally is doing better. His swelling in the perianal area is better. He has only few basal crackles. The patient will be continued on parenteral Lasix. DEVIKA/MADHURI Voice ID: [id number] Report ID: [id number]
[2018-03-20] MEDS: IPRATROPIUM BROM 0.5MG/2.5ML NEB SCH ×4 (01:52→20:44)
[2018-03-20] MEDS: LEVALBUTEROL 1.25 MG/3 ML NEB NEB SCH ×4 (01:52→20:44)
[2018-03-20] MEDS: LEVOTHYROXINE SOD 0.075 MG TAB PO SCH (04:54)
[2018-03-20] MEDS: SERTRALINE HCL 100 MG TAB PO SCH (08:44)
[2018-03-20] MEDS: LISINOPRIL 5 MG TAB PO SCH (08:45)
[2018-03-20] MEDS: CLOPIDOGREL 75 MG TABLET PO SCH (08:45)
[2018-03-20] MEDS: ASPIRIN EC 81 MG TAB PO SCH (08:45)
[2018-03-20] MEDS: FUROSEMIDE 40 MG/4 ML VIAL IM SCH ×2 (08:46→17:05)
[2018-03-20] MEDS: POTASSIUM CL SA 10 MEQ TAB PO SCH (08:46)
[2018-03-20] MEDS: GUAIFENESIN/DM 5 ML UCUP PO PRN ×2 (16:20→22:29)
--- NOTE | 2018-03-21 01:16 | PN ---
The patient generally is doing better. His perianal swelling is still significant, however, it is be tter. The patient is on IM Lasix as there is difficulty with IV. The patient will be reexamined and possibly discharged in a.m. DEVIKA/MADHURI Voice ID: [id number] Report ID: [id number]
[2018-03-21] MEDS: LEVALBUTEROL 1.25 MG/3 ML NEB NEB SCH ×4 (01:57→19:39)
[2018-03-21] MEDS: IPRATROPIUM BROM 0.5MG/2.5ML NEB SCH ×4 (01:57→19:39)
[2018-03-21] MEDS: LEVOTHYROXINE SOD 0.075 MG TAB PO SCH (06:24)
[2018-03-21] MEDS: GUAIFENESIN/DM 5 ML UCUP PO PRN (10:27)
[2018-03-21] MEDS: POTASSIUM CL SA 10 MEQ TAB PO SCH (10:28)
[2018-03-21] MEDS: ASPIRIN EC 81 MG TAB PO SCH (10:28)
[2018-03-21] MEDS: SERTRALINE HCL 100 MG TAB PO SCH (10:28)
[2018-03-21] MEDS: FUROSEMIDE 40 MG/4 ML VIAL IM SCH ×2 (10:29→17:19)
[2018-03-21] MEDS: LISINOPRIL 5 MG TAB PO SCH (10:29)
[2018-03-21] MEDS: CLOPIDOGREL 75 MG TABLET PO SCH (10:29)
[2018-03-21] MEDS: CIPROFLOXACIN HCL 250 MG TAB PO SCH ×2 (10:29→20:51)
--- NOTE | 2018-03-22 00:45 | PN ---
The patient generally is getting better. I spoke to him at length regarding his discharge plan. He claims that he lives alone. I discussed his home environment. I was not convinced that the patient would safely be discharged. In view of this, I will start Physical Therapy and Social Service consul [facility] to see if there are other options. DEVIKA/MADHURI Voice ID: [id number] Report ID: [id number]
[2018-03-22] MEDS: IPRATROPIUM BROM 0.5MG/2.5ML NEB SCH ×3 (01:30→13:50)
[2018-03-22] MEDS: LEVALBUTEROL 1.25 MG/3 ML NEB NEB SCH ×3 (01:31→13:50)
[2018-03-22] MEDS: LEVOTHYROXINE SOD 0.075 MG TAB PO SCH (06:26)
[2018-03-22 08:36] VITALS: O2SAT 98
[2018-03-22] MEDS: FUROSEMIDE 40 MG/4 ML VIAL IM SCH ×2 (11:13→17:00)
[2018-03-22] MEDS: POTASSIUM CL SA 10 MEQ TAB PO SCH (11:13)
[2018-03-22] MEDS: CIPROFLOXACIN HCL 250 MG TAB PO SCH (11:18)
[2018-03-22] MEDS: CLOPIDOGREL 75 MG TABLET PO SCH (11:18)
[2018-03-22] MEDS: LISINOPRIL 5 MG TAB PO SCH (11:18)
[2018-03-22] MEDS: SERTRALINE HCL 100 MG TAB PO SCH (11:18)
[2018-03-22] MEDS: ASPIRIN EC 81 MG TAB PO SCH (11:18)
[2018-03-22] MEDS: GUAIFENESIN/DM 5 ML UCUP PO PRN (13:32)
[2018-03-22 17:29] VITALS: BP 116/60; TEMP 97
--- NOTE | 2018-03-22 22:10 | PN ---
I spoke to the patient again post discharge plan. The patient insists on going home. The patient wi ll be discharged on instructions to be more observant about his salt intake and fluid intake. He is given prescription for Cipro for the UTI that has been diagnosed while he is in the hospital. The ash akbarcorby will be followed up in the office. DEVIKA/MADHURI Voice ID: [id number] Report ID: [id number]
== END 2018-03-22 18:34 | disposition home or self-care (01) | DRG 292 ==
LOC: ER 13:49 → ERHOLD 16:15 → 4TH 19:50
PROVIDERS: ADMIT Internal Medicine; ATTEND Internal Medicine
PROC: 30233N1 Transfusion of Nonautologous Red Blood Cells into Peripheral Vein, Percutaneous Approach (ICD-10-PCS; principal; 2018-03-16)
DX: I11.0 Hypertensive heart disease with heart failure (principal); N39.0 Urinary tract infection, site not specified; I50.23 Acute on chronic systolic (congestive) heart failure; I48.91 Unspecified atrial fibrillation; F41.8 Other specified anxiety disorders; I25.10 Atherosclerotic heart disease of native coronary artery without angina pectoris; Z95.1 Presence of aortocoronary bypass graft; Z88.0 Allergy status to penicillin; Z95.810 Presence of automatic (implantable) cardiac defibrillator
CPT/HCPCS: 36415; 71045; 74176; 76377; 80048; 80076; 81003; 82140; 82550; 82553; 82962; 83690; 83735; 83880; 84484; 85025; 85610; 85730; 86850; 86900; 86901; 87040; 87077; 87086; 87088; 87186; 87493; 93005; 94640; 96374; 99285; P9016

== ENCOUNTER 2018-04-04 16:03 | Emergency (ER) | payer OTHER ==
--- OUTSIDE RECORDS SUMMARY | 2018-04-04 16:06 | XMS REPORT | Clinical Summary ---
:1940 Author Organization [facility] Address [address] [place] [address] Care Team Providers Name Role Phone Christian [...] Cardiology Gene Jain Chronic systolic [place], MANAGER ORGANIZATIONAL-C congestive heart failure (Primary Dx) 08/25/2017 Hospital [...] Cardiology MD Sofia single dual bi vent [[id number] (CPT)] 08/13/2017 Transcribe Orders Procedural Kendal Navarro Atrial Cardiology MD Sofia fibrillation, unspecified type (Primary Dx) 08/10/2017 Procedure Pass Procedural Cardiology 08/10/2017 Surgery Procedural Kendal Navarro Cv right heart cath Cardiology MD Sofia [[id number] (CPT)] 08/10/2017 Procedure Pass Procedural Cardiology 08/09/2017 - Hospital Encounter Cardiology Bryan Cruz Acute systolic 08/18/2017 MD Edwina congestive heart failure (Primary Dx) after 04/03/2017 Social History Tobacco Use Types Packs/Day Years Used Date Never Assessed Sex Assigned at Date Recorded Not on file Last Filed Vital Signs Vital Sign Reading Time Taken Blood Pressure 115/69 08/25/2017 12:37 PM OPTIMIZATION CONSULTANT Pulse 74 08/25/2017 12:37 PM OPTIMIZATION CONSULTANT Temperature 35.9 C (96.6 F) 08/25/2017 12:37 PM OPTIMIZATION CONSULTANT Respiratory Rate 18 08/25/2017 12:37 PM OPTIMIZATION CONSULTANT Oxygen Saturation 96% 08/18/2017 3:58 PM OPTIMIZATION CONSULTANT Inhaled Oxygen Concentration - - Weight 126 kg (277 lb 6.4 oz) 08/25/2017 12:37 PM OPTIMIZATION CONSULTANT Height 172.7 cm (5' 8") 08/25/2017 12:37 PM OPTIMIZATION CONSULTANT Body Mass Index 42.18 08/25/2017 12:37 PM OPTIMIZATION CONSULTANT Plan of Treatment Health Maintenance Due Date Last Done Comments SHINGRIX VACCINE (#1) 1991 ZOSTER VACCINE 2001 PNEUMOCOCCAL POLYSACCHARIDE VACCINE AGE 65 AND OVER 2006 PNEUMOCOCCAL-13 2006 INFLUENZA VACCINE 02/09/2018 Implants Implanted Type Area Regulatory Coordinator Device Expiration Model / Identifier Date Serial / Lot Lead [place] Df4 - [id number] - [id number] Cardiac Pacing N/A: BRENDA [employer] CRM 05/23/2019 [id number] / Implanted: Qty: 1 on 08/16/2017 by Kendal Navarro Jr., MD Leads or N/A YOVANI [id number] / Electrodes or [id number] Accessories Transvenous Icd [facility] Df4 - [id number] Defibrillator N/A: [place] D232 / Implanted: Qty: 1 on 08/16/2017 by Kendal Navarro Jr., MD ICD Devices N/A SCIENTIFIC- CRM / Procedures Procedure Name Priority Date/Time Associated Comments Diagnosis ZZESTIMATED GFR STAT 08/25/2017 11:50 Results for this AM OPTIMIZATION CONSULTANT procedure are in the results section. MAGNESIUM LEVEL STAT 08/25/2017 11:50 Acute on chronic Results for this AM OPTIMIZATION CONSULTANT systolic heart procedure are in failure the results section. B NATRIURETIC PEPTIDE STAT 08/25/2017 11:50 Acute on chronic Results for this AM OPTIMIZATION CONSULTANT systolic heart procedure are in failure the results section. BASIC METABOLIC PANEL STAT 08/25/2017 11:50 Acute on chronic Results for this AM OPTIMIZATION CONSULTANT systolic heart procedure are in failure the results section. CONSULT CARDIAC REHAB Routine 08/17/2017 1:20 PHASE 1 PM OPTIMIZATION CONSULTANT ZZESTIMATED GFR Routine 08/17/2017 4:50 Results for this AM OPTIMIZATION CONSULTANT procedure are in the results section. B NATRIURETIC PEPTIDE Routine 08/17/2017 4:50 Results for this AM OPTIMIZATION CONSULTANT procedure are in the results section. MAGNESIUM LEVEL Routine 08/17/2017 4:50 Results for this AM OPTIMIZATION CONSULTANT procedure are in the results section. BASIC METABOLIC PANEL Routine 08/17/2017 4:50 Results for this AM OPTIMIZATION CONSULTANT procedure are in the results section. ECG PRE/POST OP Routine 08/16/2017 6:23 Results for this PM OPTIMIZATION CONSULTANT procedure are in the results section. XR CHEST 1 VW PORTABLE Routine 08/16/2017 5:59 Results for this PM OPTIMIZATION CONSULTANT procedure are in the results section. EP AICD IMPLANT SINGLE Routine 08/16/2017 4:21 Results for this DUAL BI VENT PM OPTIMIZATION CONSULTANT procedure are in the results section. ECG PRE/POST OP STAT 08/16/2017 2:53 Results for this PM OPTIMIZATION CONSULTANT procedure are in the results section. POTASSIUM LEVEL Routine 08/16/2017 9:16 Results for this AM OPTIMIZATION CONSULTANT procedure are in the results section. HC COMPLETE BLD COUNT Routine 08/16/2017 6:25 Results for this W/AUTO DIFF AM OPTIMIZATION CONSULTANT procedure are in the results section. ZZESTIMATED GFR Routine 08/16/2017 4:00 Results for this AM OPTIMIZATION CONSULTANT procedure are in the results section. MAGNESIUM LEVEL Routine 08/16/2017 4:00 Results for this AM OPTIMIZATION CONSULTANT procedure are in the results section. BASIC METABOLIC PANEL Routine 08/16/2017 4:00 Results for this AM OPTIMIZATION CONSULTANT procedure are in the results section. HC COMPLETE BLD COUNT Routine 08/15/2017 5:14 Results for this W/AUTO DIFF AM OPTIMIZATION CONSULTANT procedure are in the results section. B NATRIURETIC PEPTIDE Routine 08/15/2017 5:11 Results for this AM OPTIMIZATION CONSULTANT procedure are in the results section. ZZESTIMATED GFR Routine 08/15/2017 4:00 Results for this AM OPTIMIZATION CONSULTANT procedure are in the results section. MAGNESIUM LEVEL Routine 08/15/2017 4:00 Results for this AM OPTIMIZATION CONSULTANT procedure are in the results section. BASIC METABOLIC PANEL Routine 08/15/2017 4:00 Results for this AM OPTIMIZATION CONSULTANT procedure are in the results section. PHOSPHORUS LEVEL Timed 08/14/2017 4:00 Results for this PM OPTIMIZATION CONSULTANT procedure are in the results section. POTASSIUM LEVEL Timed 08/14/2017 4:00 Results for this PM OPTIMIZATION CONSULTANT procedure are in the results section. HC COMPLETE BLD COUNT Routine 08/14/2017 5:30 Results for this W/AUTO DIFF AM OPTIMIZATION CONSULTANT procedure are in the results section. ZZESTIMATED GFR Routine 08/14/2017 4:00 Results for this AM OPTIMIZATION CONSULTANT procedure are in the results section. PHOSPHORUS LEVEL Routine 08/14/2017 4:00 Results for this AM OPTIMIZATION CONSULTANT procedure are in the results section. MAGNESIUM LEVEL Routine 08/14/2017 4:00 Results for this AM OPTIMIZATION CONSULTANT procedure are in the results section. BASIC METABOLIC PANEL Routine 08/14/2017 4:00 Results for this AM OPTIMIZATION CONSULTANT procedure are in the results section. HC COMPLETE BLD COUNT Routine 08/13/2017 5:25 Results for this W/AUTO DIFF AM OPTIMIZATION CONSULTANT procedure are in the results section. ZZESTIMATED GFR Routine 08/13/2017 4:00 Results for this AM OPTIMIZATION CONSULTANT procedure are in the results section. PHOSPHORUS LEVEL Routine 08/13/2017 4:00 Results for this AM OPTIMIZATION CONSULTANT procedure are in the results section. MAGNESIUM LEVEL Routine 08/13/2017 4:00 Results for this AM OPTIMIZATION CONSULTANT procedure are in the results section. BASIC METABOLIC PANEL Routine 08/13/2017 4:00 Results for this AM OPTIMIZATION CONSULTANT procedure are in the results section. ECG 12-LEAD Routine 08/12/2017 12:15 Results for this PM OPTIMIZATION CONSULTANT procedure are in the results section. HC COMPLETE BLD COUNT Routine 08/12/2017 5:18 Results for this W/AUTO DIFF AM OPTIMIZATION CONSULTANT procedure are in the results section. ZZESTIMATED GFR Routine 08/12/2017 4:00 Results for this AM OPTIMIZATION CONSULTANT procedure are in the results section. BASIC METABOLIC PANEL Routine 08/12/2017 4:00 Results for this AM OPTIMIZATION CONSULTANT procedure are in the results section. POTASSIUM LEVEL Routine 08/11/2017 3:55 Results for this PM OPTIMIZATION CONSULTANT procedure are in the results section. HC COMPLETE BLD COUNT Routine 08/11/2017 5:58 Results for this W/AUTO DIFF AM OPTIMIZATION CONSULTANT procedure are in the results section. ZZESTIMATED GFR Routine 08/11/2017 5:58 Results for this AM OPTIMIZATION CONSULTANT procedure are in the results section. BASIC METABOLIC PANEL Routine 08/11/2017 5:58 Results for this AM OPTIMIZATION CONSULTANT procedure are in the results section. CV RIGHT HEART CATH Routine 08/10/2017 3:09 Results for this PM OPTIMIZATION CONSULTANT procedure are in the results section. HC COMPLETE BLD COUNT Routine 08/10/2017 5:30 Results for this W/AUTO DIFF AM OPTIMIZATION CONSULTANT procedure are in the results section. ZZESTIMATED GFR Routine 08/10/2017 4:00 Results for this AM OPTIMIZATION CONSULTANT procedure are in the results section. PHOSPHORUS LEVEL Routine 08/10/2017 4:00 Results for this AM OPTIMIZATION CONSULTANT procedure are in the results section. MAGNESIUM LEVEL Routine 08/10/2017 4:00 Results for this AM OPTIMIZATION CONSULTANT procedure are in the results section. BASIC METABOLIC PANEL Routine 08/10/2017 4:00 Results for this AM OPTIMIZATION CONSULTANT procedure are in the results section. XR CHEST 1 VW PORTABLE Routine 08/09/2017 8:40 Results for this PM OPTIMIZATION CONSULTANT procedure are in the results section. PROTHROMBIN TIME WITH Routine 08/09/2017 5:05 Results for this INR PM OPTIMIZATION CONSULTANT procedure are in the results section. PARTIAL THROMBOPLASTIN Routine 08/09/2017 5:05 Results for this TIME (PTT) PM OPTIMIZATION CONSULTANT procedure are in the results section. ZZESTIMATED GFR Routine 08/09/2017 5:05 Results for this PM OPTIMIZATION CONSULTANT procedure are in the results section. CBC HEMOGRAM Routine 08/09/2017 5:05 Results for this PM OPTIMIZATION CONSULTANT procedure are in the results section. THYROID STIMULATING Routine 08/09/2017 5:05 Results for this HORMONE PM OPTIMIZATION CONSULTANT procedure are in the results section. T4, FREE Routine 08/09/2017 5:05 Results for this PM OPTIMIZATION CONSULTANT procedure are in the results section. COMPREHENSIVE METABOLIC Routine 08/09/2017 5:05 Results for this PANEL PM OPTIMIZATION CONSULTANT procedure are in the results section. B NATRIURETIC PEPTIDE Routine 08/09/2017 5:05 Results for this PM OPTIMIZATION CONSULTANT procedure are in the results section. after 04/03/2017 Results Estimated GFR (08/25/2017 11:50 AM)Only the most recent of10 resultswithin the time period is included. GFR Non Af Amer 73 mL/min/1.73 m2 [facility] DEPARTMENT OF PATHOLOGY AND GENOMIC MEDICINE GFR Af Amer 88 mL/min/1.73 m2 [facility] DEPARTMENT OF Comment: PATHOLOGY AND GENOMIC [...] Americans. Specimen Plasma specimen Performing Organization Address City/[facility] Phone Number [facility] DEPARTMENT OF PATHOLOGY AND [address] [place] [address] B natriuretic peptide (08/25/2017 11:50 AM)Only the most recent of4 resultswithin the time period is included. BNP 558 (H) 0 - 100 pg/mL [facility] DEPARTMENT OF PATHOLOGY AND [facility] Specimen Blood Performing Organization Address [facility] Phone Number [facility] DEPARTMENT OF PATHOLOGY AND [address] [place] [address] Magnesium level (08/25/2017 11:50 AM)Only the most recent of7 resultswithin the time period is included. Magnesium 2.1 1.6 - 2.4 mg/dL [facility] DEPARTMENT OF PATHOLOGY AND [facility] Specimen Plasma specimen Performing Organization Address [facility] Phone Number [facility] DEPARTMENT OF PATHOLOGY AND [address] [place] [address] Basic metabolic panel (08/25/2017 11:50 AM)Only the most recent of9 resultswithin the time period is included. Sodium 139 135 - 148 mEq/L [facility] DEPARTMENT OF PATHOLOGY AND GENOMIC MEDICINE Potassium 4.1 3.5 - 5.0 mEq/L [facility] DEPARTMENT OF PATHOLOGY AND GENOMIC MEDICINE Chloride 96 (L) 98 - 112 mEq/L [facility] DEPARTMENT OF PATHOLOGY AND GENOMIC MEDICINE CO2 33 (H) 24 - 31 mEq/L [facility] DEPARTMENT OF PATHOLOGY AND GENOMIC MEDICINE Anion gap 10 7 - 15 mEq/L [facility] DEPARTMENT OF PATHOLOGY Comment: AND [facility] Starting from October , anion gap calculation no longer incorporates potassium. Please note the change. BUN 25 (H) 8 - 23 mg/dL [facility] DEPARTMENT OF PATHOLOGY AND GENOMIC MEDICINE Creatinine 1.0 0.7 - 1.2 mg/dL [facility] DEPARTMENT OF PATHOLOGY AND GENOMIC MEDICINE Glucose 89 65 - 99 mg/dL [facility] DEPARTMENT OF PATHOLOGY AND GENOMIC MEDICINE Calcium 9.4 8.8 - 10.2 mg/dL [facility] DEPARTMENT OF PATHOLOGY AND GENOMIC MEDICINE Specimen Plasma specimen Performing Organization Address [facility] Phone Number [facility] DEPARTMENT OF PATHOLOGY AND [address] [place] [address] [employer] [facility] ECG Pre/Post Op-Tomorrow (08/16/2017 6:23 PM)Only the most recent of2 resultswithin the time period is included. Ventricular rate 64 [facility] MUSE Atrial rate 71 [facility] MUSE QRSD interval 106 [facility] MUSE QT interval 452 [facility] MUSE QTC interval 466 [facility] QRS axis 1 67 [facility] MUSE T wave axis 162 [facility] MUSE EKG impression Atrial fibrillation with premature [facility] MUSE ventricular or aberrantly conducted complexes-Possible Inferior infarct (cited on or before 31-OCT-2014)-Nonspecific T wave abnormality- Performing Organization Address [facility] Phone Number [facility] MUSE [address] [place] [address] XR Chest 1 Vw Portable (08/16/2017 5:59 [...] congestion with no signs of pulmonary edema. [id number] Procedure Note Hm Interface, Radiology Results Incoming - 08/16/2017 6:11 PM OPTIMIZATION CONSULTANT EXAMINATION: Portable chest x-ray CLINICAL HISTORY: Pneumothorax COMPARISON: Most recent available chest x-ray. The heart is moderately enlarged. ICD electrode is in stable position. There are degenerative changes in the dorsal spine. IMPRESSION: 1. There is no pneumothorax. 2. No pleural fluid. 3. There is mild vascular congestion with no signs of pulmonary edema. [id number] Performing Organization Address City/State/Zipcode Phone Number [facility] [address] [place] [address] Cv electrophysiology procedure (08/16/2017 4:21 PM) Narrative Performed At TITLE: [facility] ICD implantation. PREOPERATIVE DIAGNOSES: 1.Nonischemic dilated [...] a scalpel, cautery, and blunt dissection.Using the pduw-ita-utuc technique and an introducer sheath, a defibrillation [...] right ventricular apical defibrillation lead is a [place] [employer] [place] 4-site G, model 0296, serial #[id number].Measured R-wave 5.3 millivolt, pacing threshold 0.6 volt, current 1.0 mA, impedance 664 ohms. 2.Defibrillator is a [place] [employer] Vigilant EL ICD model Delta D232, serial #[id number]. 3.Defibrillator safety threshold testing not performed due to inability to anticoagulate because of hematuria. CONCLUSIONS: Successful ICD placement. RECOMMENDATIONS: Once he can accept oral anticoagulation for a sufficient duration, we will bring him back for outpatient DFT assessment. Performing Organization Address [facility] Cent[facility]out Phone Number [facility] [address] [place] [address] Potassium level (08/16/2017 9:16 AM)Only the most recent of3 resultswithin the time period is included. Potassium 4.0 3.5 - 5.0 mEq/L [facility] DEPARTMENT OF PATHOLOGY AND GENOMIC MEDICINE Specimen Plasma specimen Performing Organization Address [facility]/Zipcode Phone Number [facility] DEPARTMENT OF PATHOLOGY AND [address] [place] [phone] GENOMIC MEDICINE CBC with platelet and differential (08/16/2017 6:25 AM)Only the most recent of7 resultswithin the time period is included. WBC 5.87 4.50 - 11.00 k/uL [facility] DEPARTMENT OF PATHOLOGY AND GENOMIC MEDICINE RBC 3.45 (L) 4.40 - 6.00 m/uL [facility] DEPARTMENT OF PATHOLOGY AND GENOMIC MEDICINE HGB 10.3 (L) 14.0 - 18.0 g/dL [facility] DEPARTMENT OF PATHOLOGY AND GENOMIC MEDICINE HCT 31.9 (L) 41.0 - 51.0 % [facility] DEPARTMENT OF PATHOLOGY AND GENOMIC MEDICINE MCV 92.5 82.0 - 100.0 fL [facility] DEPARTMENT OF PATHOLOGY AND GENOMIC MEDICINE MCH 29.9 27.0 - 34.0 pg [facility] DEPARTMENT OF PATHOLOGY AND GENOMIC MEDICINE MCHC 32.3 31.0 - 37.0 g/dL [facility] DEPARTMENT OF PATHOLOGY AND GENOMIC MEDICINE RDW - SD 55.8 (H) 37.0 - 55.0 fL [facility] DEPARTMENT OF PATHOLOGY AND GENOMIC MEDICINE MPV 12.1 8.8 - 13.2 fL [facility] DEPARTMENT OF PATHOLOGY AND GENOMIC MEDICINE Platelet count 92 (L) 150 - 400 k/uL [facility] DEPARTMENT OF PATHOLOGY AND GENOMIC MEDICINE Nucleated RBC 0.00 /100 WBC [facility] DEPARTMENT OF PATHOLOGY AND GENOMIC MEDICINE Neutrophils 68.7 39.0 - 69.0 % [facility] DEPARTMENT OF PATHOLOGY AND GENOMIC MEDICINE Lymphocytes 13.3 (L) 25.0 - 45.0 % [facility] DEPARTMENT OF PATHOLOGY AND GENOMIC MEDICINE Monocytes 9.7 0.0 - 10.0 % [facility] DEPARTMENT OF PATHOLOGY AND GENOMIC MEDICINE Eosinophils 6.8 (H) 0.0 - 5.0 % [facility] DEPARTMENT OF PATHOLOGY AND GENOMIC MEDICINE Basophils 1.2 (H) 0.0 - 1.0 % [facility] DEPARTMENT OF PATHOLOGY AND GENOMIC MEDICINE Immature granulocytes 0.3Comment: 0.0 - 1.0 % [facility] DEPARTMENT OF "Immature PATHOLOGY AND GENOMIC granulocytes" MEDICINE (promyelocytes, myelocytes, metamyelocytes) Specimen Blood Performing Organization Address City/[facility] Phone Number [facility] DEPARTMENT OF PATHOLOGY AND [address] [place] [address] Phosphorus level (08/14/2017 4:00 PM)Only the most recent of4 resultswithin the time period is included. Phosphorus 2.9 2.4 - 4.5 mg/dL [facility] DEPARTMENT OF PATHOLOGY AND GENOMIC MEDICINE Specimen Plasma specimen Performing Organization Address City/[facility] Phone Number [facility] DEPARTMENT OF PATHOLOGY AND [address] [place] [phone] [facility] MEDICINE ECG 12 lead (08/12/2017 12:15 PM) Ventricular rate 80 [facility] Atrial rate 66 [facility] QRSD interval 114 [facility] QT interval 506 [facility] QTC interval 583 [facility] MUSE QRS axis 1 61 [facility] MUSE T wave axis 171 [facility] MUSE EKG impression Accelerated Junctional rhythm with frequent premature ventricular complexes-Possible underlying atrial fibrillation-Possible Inferior infarct (cited on or before 31-OCT-2014)-ST & T wave abnormality [facility] MUSE , consider anterolateral ischemia-Prolonged QT-Abnormal ECG-In automated comparison with ECG of 01-NOV-2014 08:17,-QT has lengthened- Performing Organization Address City/[facility]/Zipcode Phone Number [facility] MUSE [address] [place] [address] Cv bolt labeler procedure (08/10/2017 3:09 PM) Narrative Performed At [...] Milrinone and IV Lasix Performing Organization Address City/[facility]/Zipcode Phone Number [facility] [address] [place] [address] Partial thromboplastin time, activated (08/09/2017 5:05 PM) PTT 36.0 23.0 - 36.0 sec [facility] DEPARTMENT OF PATHOLOGY Comment: AND GENOMIC MEDICINE PTT therapeutic range for unfractionated heparin is 61.0-112.0 seconds which corresponds to Anti-Xa 0.3-0.7 U/ml. Specimen Blood Performing Organization Address City/[facility]/Zipcode Phone Number [facility] DEPARTMENT OF PATHOLOGY AND [address] [place] [address] [facility] Prothrombin time with INR (08/09/2017 5:05 PM) Prothrombin time 17.7 (H) 12.0 - 15.0 sec [facility] DEPARTMENT OF PATHOLOGY AND GENOMIC MEDICINE INR 1.4 [facility] DEPARTMENT OF Comment: PATHOLOGY AND GENOMIC The International Normalized Ratio (INR) is a therapeutic MEDICINE monitoring tool for patients who are stable on oral anticoagulant therapy. An INR of 2.0-3.0 is suggested for deep vein thrombosis/pulmonary embolism. Specimen Blood Performing Organization Address City/[facility]/Zipcode Phone Number [facility] DEPARTMENT OF PATHOLOGY AND [address] [place] [address] CBC hemogram (08/09/2017 5:05 PM) WBC 7.03 4.50 - 11.00 k/uL [facility] DEPARTMENT OF PATHOLOGY AND GENOMIC MEDICINE RBC 3.68 (L) 4.40 - 6.00 m/uL [facility] DEPARTMENT OF PATHOLOGY AND GENOMIC MEDICINE HGB 11.0 (L) 14.0 - 18.0 g/dL [facility] DEPARTMENT OF PATHOLOGY AND GENOMIC MEDICINE HCT 34.5 (L) 41.0 - 51.0 % [facility] DEPARTMENT OF PATHOLOGY AND GENOMIC MEDICINE MCV 93.8 82.0 - 100.0 fL [facility] DEPARTMENT OF PATHOLOGY AND GENOMIC MEDICINE MCH 29.9 27.0 - 34.0 pg [facility] DEPARTMENT OF PATHOLOGY AND GENOMIC MEDICINE MCHC 31.9 31.0 - 37.0 g/dL [facility] DEPARTMENT OF PATHOLOGY AND GENOMIC MEDICINE RDW - SD 58.0 (H) 37.0 - 55.0 fL [facility] DEPARTMENT OF PATHOLOGY AND GENOMIC MEDICINE MPV 11.8 8.8 - 13.2 fL [facility] DEPARTMENT OF PATHOLOGY AND GENOMIC MEDICINE Platelet count 110 (L) 150 - 400 k/uL [facility] DEPARTMENT OF PATHOLOGY AND GENOMIC MEDICINE Nucleated RBC 0.00 /100 WBC [facility] DEPARTMENT OF PATHOLOGY AND GENOMIC MEDICINE Specimen Blood Performing Organization Address [facility] Centercode Phone Number [facility] DEPARTMENT OF PATHOLOGY AND [address] [place], [place] [phone] [facility] Thyroid stimulating hormone (08/09/2017 5:05 PM) TSH 13.20 (H) 0.27 - 4.20 uIU/mL [facility] DEPARTMENT OF PATHOLOGY AND GENOMIC MEDICINE Specimen Plasma specimen Performing Organization Address City/[facility]/Zipcode Phone Number [facility] DEPARTMENT OF PATHOLOGY AND [address] [place], [place] [phone] [facility] T4, free (08/09/2017 5:05 PM) T4, free 0.9 0.9 - 1.7 ng/dL [facility] DEPARTMENT OF PATHOLOGY AND GENOMIC MEDICINE Specimen Plasma specimen Performing Organization Address City/[facility]/Zipcode Phone Number [facility] DEPARTMENT OF PATHOLOGY AND [address] [place], [place] [phone] [facility] Comprehensive metabolic panel (08/09/2017 5:05 PM) Sodium 141 135 - 148 mEq/L [facility] DEPARTMENT OF PATHOLOGY AND GENOMIC MEDICINE Potassium 3.6 3.5 - 5.0 mEq/L [facility] DEPARTMENT OF PATHOLOGY AND GENOMIC MEDICINE Chloride 97 (L) 98 - 112 mEq/L [facility] DEPARTMENT OF PATHOLOGY AND GENOMIC MEDICINE CO2 33 (H) 24 - 31 mEq/L [facility] DEPARTMENT OF PATHOLOGY AND GENOMIC MEDICINE Anion gap 11 7 - 15 mEq/L [facility] DEPARTMENT OF Comment: PATHOLOGY AND GENOMIC Starting from October , anion gap calculation MEDICINE no longer incorporates potassium. Please note the change. BUN 24 (H) 8 - 23 mg/dL [facility] DEPARTMENT OF PATHOLOGY AND GENOMIC MEDICINE Creatinine 1.2 0.7 - 1.2 mg/dL [facility] DEPARTMENT OF PATHOLOGY AND GENOMIC MEDICINE Glucose 132 (H) 65 - 99 mg/dL [facility] DEPARTMENT OF PATHOLOGY AND GENOMIC MEDICINE Calcium 9.9 8.8 - 10.2 mg/dL [facility] DEPARTMENT OF PATHOLOGY AND GENOMIC MEDICINE Protein 7.4 6.3 - 8.3 g/dL [facility] DEPARTMENT OF Comment: PATHOLOGY AND GENOMIC Allen 4.6-7.0 g/dL MEDICINE 1 week 4.4-7.6 g/dL 7 months-1year5.1-7.3 g/dL 1-2 years5.6-7.5 g/dL >3 years6.0-8.0 g/dL 18-150 6.3-8.3 g/dL Albumin 3.1 (L) 3.5 - 5.0 g/dL [facility] DEPARTMENT OF PATHOLOGY AND GENOMIC MEDICINE A/G ratio 0.7 0.7 - 3.8 [facility] DEPARTMENT OF PATHOLOGY AND GENOMIC MEDICINE Alkaline phosphatase 69 40 - 129 U/L [facility] DEPARTMENT OF PATHOLOGY AND GENOMIC MEDICINE AST 24 10 - 50 U/L [facility] DEPARTMENT OF PATHOLOGY AND GENOMIC MEDICINE ALT 13 5 - 50 U/L [facility] DEPARTMENT OF PATHOLOGY AND GENOMIC MEDICINE Total bilirubin 1.0 0.0 - 1.2 mg/dL [facility] DEPARTMENT OF PATHOLOGY AND GENOMIC MEDICINE Specimen Plasma specimen Performing Organization Address City/State/Zipcode Phone Number [facility] DEPARTMENT OF PATHOLOGY AND [address] [place] [address] GENOMIC MEDICINE after 04/03/2017 Insurance Payer Benefit Plan / Group Subscriber ID Type Phone Address [employer]ARE [employer] MED[employer]ARE PPO/PFFS/[facility] xxxxxxxxx PPO Home: [phone] CELINE EDMONDS [phone]
--- NOTE | 2018-04-04 17:00 | RAD REPORT ---
EXAM DESCRIPTION: RAD - Chest Single View - 04/04/2018 4:51 pm CLINICAL HISTORY: Shortness of breath COMPARISON: March 17 TECHNIQUE: AP portable chest image was obtained 1648 hours . FINDINGS: Lung volumes are low. Interstitial markings are prominent but not clearly different. Prono unced cardiomegaly is present. Vascular engorgement is seen. Trachea is midline. Sternotomy wires and defibrillator again noted. No measurable pleural effusion and no pneumothorax. No gross bony abnorma lity seen. No acute aortic findings suspected. IMPRESSION: Mild CHF/volume overload pattern. This may be chronic for the patient. No focal mass or consolidation.
[2018-04-04 17:03] LABS: Absolute Lymphocytes (CBC) 0.6 K/uL (0.7-4.9); Absolute Monocytes 0.8 K/uL (0.1-1.3); Absolute Neutrophil 5.9 K/uL (1.8-8.0); Basophils % 1.4 % (0-1.3); Eosinophils % 4.5 % (0-4.4); Lymphocytes % 8.1 % (15.3-44.8); MCH 28.6 pg (27.0-35.0); MCV 88.7 fL (80-100); MPV 8.7 fL (7.6-11.3); Monocytes % 9.9 % (3.3-12.3); RBC Red Blood Cell Count 2.94 M/uL (4.33-5.43)
[2018-04-04 17:04] LABS: Protime INR 1.37
--- NOTE | 2018-04-04 17:13 | RAD REPORT ---
EXAM DESCRIPTION: CT - Stone Protocol - 04/04/2018 5:02 pm CLINICAL HISTORY: Abdominal pain, abdominal distention, testicular pain COMPARISON: CT imaging March 16 TECHNIQUE: Axial [address] imaging of the abdomen and pelvis was performed without IV contrast. No IV contrast was given because of allergy, abnormal renal function, patient refusal or physician re quest. Oral contrast was given. All CT scans are performed using dose optimization technique as appropriate and may include automated exposure control or mA/KV adjustment according to patient size. FINDINGS: No measurable pleural effusions or acute lung parenchymal finding. Cardiomegaly is present without pericardial thickening or effusion. Liver shows a nodular capsular contour. No focal liver lesion on noncontrast imaging. No splenomegaly . No acute pancreatic process. Gallbladder is poorly visualized probably contracted. Gallstones are s uspected likely of no acute clinical significance. No biliary tree dilatation. No hydronephrosis or suspicious renal mass. Minimal symmetric perinephric stranding present. Urinary bladder is contracted. No bladder calculus. Prostate gland and seminal vesicles are normal. No signif icant adrenal finding. Isodense renal masses and pyelonephritis cannot be excluded in the absence of IV contrast. No dilated bowel loops or bowel wall thickening. No free air or pneumatosis. No mass or bulky lymphad enopathy. Patient does have several lymph nodes up to 2.8 cm in size at the distal external iliac maynor in. No significant aortic lymphadenopathy. Patient has a anasarca pattern with moderately large volume of ascites. Anasarca pattern extends int o the scrotum. Large hydroceles are present. No suspicious bony findings. IMPRESSION: Anasarca pattern with moderate ascites. This also involves the scrotum where there is sc rotal wall edema and large hydroceles. Patient has significant cardiomegaly. Fluid retention pattern is potentially from failure. Patient rodriguez s evidence for cirrhosis or diffuse hepatic parenchymal disease which could be a cause for the fluid retention as well. No free air, obstruction or surgically emergent finding Full assessment is limited is the absence of IV contrast.
[2018-04-04 17:36] LABS: Albumin 3.3 g/dL (3.4-5.0); Bilirubin Direct 0.4 mg/dL (0-0.2); Bilirubin Total 0.9 mg/dL (0.2-1.0); Magnesium 2.6 mg/dL (1.8-2.4); Potassium 4.7 mmol/L (3.5-5.1); Protein, Total 7.2 g/dL (6.4-8.2); Troponin (Emerg Dept Use Only) 0.02 ng/mL (0.0-0.045)
--- NOTE | 2018-04-04 20:18 | EDPHYS ---
Physician Documentation [facility] Name: Atul Burton Sr Age: 77 yrs Sex: Male : 1940 Arrival Date: 04/04/2018 Time: 16:06 Bed 5 Private MD: Christian Valladares R ED Physician Paul Garcia HPI: 04/04 20:09 This 77 yrs old Male presents to ER via Wheelchair with complaints of maynor Testicular Pain. 20:09 The patient presents with scrotal pain, swelling. Onset: The symptoms/episode maynor began/occurred 5 day(s) ago. Modifying factors: The symptoms are alleviated by nothing, the symptoms are aggravated by movement, pressure. Historical: - Allergies: 16:49 PENICILLINS; iw - Home Meds: 16:49 Albuterol-Ipratropium Inhl 2 puffs 4 times per day [Active]; aspirin 81 mg Oral chew 1 iw tab once daily [Active]; carvedilol 6.25 mg Oral tab 1 tab 2 times per day [Active]; furosemide 80 mg Oral tab 1 tab 2 times per day [Active]; metolazone 5 mg Oral tab 1 tab WEEKLY [Active]; Plavix 75 mg Oral tab 1 tab once daily [Active]; potassium chloride 10 mEq Oral TbER [Active]; spironolactone 25 mg Oral tab 1 tab once daily [Active]; torsemide 20 mg Oral tab 3 tab twice a day [Active]; Zoloft 100 mg Oral tab 1 tab once daily [Active]; - PMHx: 16:49 Anxiety; CHF; Depression; pacemaker/defibrillator; Hypertension; iw - PSHx: 16:49 triple bypass; iw - Immunization history:: Adult Immunizations. - Social history:: Smoking status: . - Ebola Screening: : Patient denies travel to an Ebola-affected area in the 21 days before illness onset. ROS: 20:10 Constitutional: Negative for fever, chills, and weight loss, Eyes: Negative for injury, maynor pain, redness, and discharge, ENT: Negative for injury, pain, and discharge, Neck: Negative for injury, pain, and swelling, Cardiovascular: Negative for chest pain, palpitations, and edema, Back: Negative for injury and pain, : Negative for injury, bleeding, discharge, and swelling. 20:10 Skin: Negative for injury, rash, and discoloration, Neuro: Negative for headache, weakness, numbness, tingling, and seizure. 20:10 Respiratory: Positive for dyspnea on exertion, orthopnea, shortness of breath. 20:10 Abdomen/GI: Positive for abdominal pain, abdominal distension, of the right upper quadrant, left upper quadrant, right lower quadrant and left lower quadrant. 20:10 MS/extremity: Positive for swelling, of the right leg and left leg. Exam: 20:10 Constitutional: This is a well developed, well nourished patient who is awake, alert, maynor and in no acute distress. Head/Face: Normocephalic, atraumatic. Eyes: Pupils equal round and reactive to light, extra-ocular motions intact. Lids and lashes normal. Conjunctiva and sclera are non-icteric and not injected. Cornea within normal limits. Periorbital areas with no swelling, redness, or edema. ENT: Nares patent. No nasal discharge, no septal abnormalities noted. Tympanic membranes are normal and external auditory canals are clear. Oropharynx with no redness, swelling, or masses, exudates, or evidence of obstruction, uvula midline. Mucous membranes moist. Neck: Trachea midline, no thyromegaly or masses palpated, and no cervical lymphadenopathy. Supple, full range of motion without nuchal rigidity, or vertebral point tenderness. No Meningismus. Chest/axilla: Normal chest wall appearance and motion. Nontender with no deformity. No lesions are appreciated. Neuro: Awake and alert, GCS 15, oriented to person, place, time, and situation. Cranial nerves II-XII grossly intact. Motor strength 5/5 in all extremities. Sensory grossly intact. Cerebellar exam normal. Normal gait. Psych: Awake, alert, with orientation to person, place and time. Behavior, mood, and affect are within normal limits. 20:10 Cardiovascular: Rate: normal, Rhythm: irregularly irregular, Pulses: Pulses are 3+ in bilateral radial, brachial, femoral, popliteal, posterior tibial and and dorsalis pedis arteries.. Heart sounds: murmur, not appreciated, rub, not appreciated, gallop, not appreciated, Edema: 4+ edema to level of waist, pubic area, left upper thigh, left lower thigh, left knee, left midcalf, left ankle, left foot, left toes, right upper thigh, right lower thigh, right knee, right midcalf, right ankle, right foot and right toes, JVD: is noted bilaterally, to 2 cm. 20:10 Respiratory: the patient does not display signs of respiratory distress, Respirations: normal, Breath sounds: rales, that are mild, are located in both bases, are heard in the left posterior lower lobe, right posterior middle lobe and right posterior lower lobe, decreased breath sounds, rhonchi, that are mild, are scattered. Vital Signs: 16:50 BP 137 / 77; Pulse 86; Resp 24 S; Temp 98.4(O); Pulse Ox 100% on 4 lpm NC; Pain 0/10; iw 17:30 BP 139 / 78; Pulse 81; Resp 17; Pulse Ox 98% on 2 lpm NC; tw2 18:14 BP 127 / 69; Pulse 77; Resp 22; Pulse Ox 100% on 2 lpm NC; tw2 19:00 BP 128 / 69; Pulse 76; Resp 21; Pulse Ox 100% ; bp 21:00 BP 123 / 72; Pulse 82; Resp 21; Pulse Ox 100% ; bp 22:15 BP 105 / 45; Pulse 79; Resp 20; Pulse Ox 100% on NC; bp MDM: 16:43 Patient medically screened. [facility] 20:12 Data reviewed: vital signs, nurses notes, lab test result(s), EKG, radiologic studies, [facility] CT scan, plain films. 04/04 16:28 Order name: Basic Metabolic Panel; Complete Time: 20:03 04/04 16:28 Order name: CBC with Diff; Complete Time: 20:03 [facility] 04/04 16:28 Order name: LFT's; Complete Time: 20:03 04/04 16:28 Order name: Magnesium; Complete Time: 20:03 04/04 16:28 Order name: NT PRO-BNP; Complete Time: 20:03 04/04 16:28 Order name: PT-INR; Complete Time: 20:03 04/04 16:28 Order name: Troponin (emerg Dept Use Only); Complete Time: 20:03 04/04 16:28 Order name: XRAY Chest (1 view); Complete Time: 20:03 [facility] 04/04 16:45 Order name: Lipase; Complete Time: 20:03 [facility] 04/04 16:45 Order name: CT Stone Protocol; Complete Time: 20:03 maynor 04/04 16:45 Order name: Urine Culture [facility] 04/04 20:00 Order name: Urine Dipstick--Ancillary (enter results); Complete Time: 20:35 cc 04/04 20:08 Order name: AMMONIA [facility] 04/04 16:28 Order name: EKG; Complete Time: 16:33 tw2 04/04 16:28 Order name: Cardiac monitoring; Complete Time: 17:53 [facility] 04/04 16:28 Order name: EKG - Nurse/Tech; Complete Time: 19:04 tw 04/04 16:28 Order name: IV Saline Lock; Complete Time: 17:53 [facility] 04/04 16:28 Order name: Labs collected and sent; Complete Time: 17:53 [facility] 04/04 16:28 Order name: O2 Per Protocol; Complete Time: 17:53 [facility] 04/04 16:28 Order name: O2 Sat Monitoring; Complete Time: 17:53 [facility] 04/04 16:45 Order name: Hendrickson; Complete Time: 20:11 [facility] Administered Medications: 20:30 Drug: Rocephin - (cefTRIAXone) 1 grams Route: IVPB; Infused Over: 30 mins; Site: right bp antecubital; 21:17 Follow up: IV Status: Completed infusion; IV Intake: 100ml bp 20:30 Drug: Lasix 40 mg Route: IVP; Site: right antecubital; bp 21:17 Follow up: Response: No adverse reaction bp 20:30 Drug: Xopenex 1.25 mg Route: Inhalation; bp 20:30 Drug: AtroVENT Aerosol 0.5 mg Route: Inhalation; bp 20:30 Drug: ProTONIX 40 mg Route: IVP; Site: right antecubital; bp 21:18 Follow up: Response: No adverse reaction bp Disposition: 04/04/18 20:17 Transfer ordered to [facility]. Diagnosis are Unspecified combined systolic (congestive) and diastolic (congestive) heart failure, Unspecified kidney failure, Obesity, unspecified, Unspecified cirrhosis of liver, Ascites, Hydrocele, unspecified. - Reason for transfer: Higher level of care. - Accepting physician is to [facility]. - Condition is Fair. - Problem is new. - Symptoms have improved. Signatures: Dispatcher [employer] Paul Ceballos MD MD cha Williams, Irene, RN RN iw Colette Bravo RN RN tw2 Kane Ibarra, RN RN bp Corrections: (The following items were deleted from the chart) 22:24 20:17 04/04/2018 20:17 Transfer ordered to [facility]. Diagnosis is bp Unspecified combined systolic (congestive) and diastolic (congestive) heart failure; Unspecified kidney failure; Obesity, unspecified; Unspecified cirrhosis of liver; Ascites; Hydrocele, unspecified. Reason for transfer: Higher level of care. Accepting physician is to [facility]. Condition is Fair. Problem is new. Symptoms have improved. maynor
--- NOTE | 2018-04-04 20:18 | ER ---
Nurse's Notes [facility] Name: Atul Burton Sr Age: 77 yrs Sex: Male : 1940 Arrival Date: 04/04/2018 Time: 16:06 Bed 5 Private MD: Christian Valladares R Diagnosis: Unspecified combined systolic (congestive) and diastolic (congestive) heart failure;Unspecified kidney failure;Obesity, unspecified;Unspecified cirrhosis of liver;Ascites;Hydrocele, unspecified Presentation: 04/04 16:47 Presenting complaint: Patient states: swelling to testicles, SOB X 1 week, pt states iw his testicles are leaking, hx of CHF. Transition of care: patient was not received from another setting of care. Onset of symptoms was March 30, 2018. Risk Assessment: Do you want to hurt yourself or someone else? Patient reports no desire to harm self or others. Initial Sepsis Screen: Does the patient meet any 2 criteria? No. Patient's initial sepsis screen is negative. Does the patient have a suspected source of infection? No. Patient's initial sepsis screen is negative. Care prior to arrival: None. 16:47 Method Of Arrival: Wheelchair iw 16:47 Acuity: KASI 2 iw Historical: - Allergies: 16:49 PENICILLINS; iw - Home Meds: 16:49 Albuterol-Ipratropium Inhl 2 puffs 4 times per day [Active]; aspirin 81 mg Oral chew 1 iw tab once daily [Active]; carvedilol 6.25 mg Oral tab 1 tab 2 times per day [Active]; furosemide 80 mg Oral tab 1 tab 2 times per day [Active]; metolazone 5 mg Oral tab 1 tab WEEKLY [Active]; Plavix 75 mg Oral tab 1 tab once daily [Active]; potassium chloride 10 mEq Oral TbER [Active]; spironolactone 25 mg Oral tab 1 tab once daily [Active]; torsemide 20 mg Oral tab 3 tab twice a day [Active]; Zoloft 100 mg Oral tab 1 tab once daily [Active]; - PMHx: 16:49 Anxiety; CHF; Depression; pacemaker/defibrillator; Hypertension; iw - PSHx: 16:49 triple bypass; iw - Immunization history:: Adult Immunizations. - Social history:: Smoking status: . - Ebola Screening: : Patient denies travel to an Ebola-affected area in the 21 days before illness onset. Screenin:11 Abuse screen: Denies threats or abuse. Nutritional screening: No deficits noted. tw2 Tuberculosis screening: No symptoms or risk factors identified. Fall Risk Secondary diagnosis (15 points) impaired mobility. Assessment: 17:08 General: Appears obese, Behavior is calm, cooperative, appropriate for age. Pain: tw2 Complains of pain in abdomen and pelvis. Neuro: Level of Consciousness is awake, alert, obeys commands, Oriented to person, place, time, situation. Cardiovascular: Heart tones S1 S2 Patient's skin is warm and dry. Cardiovascular: Edema is 4+ to left midcalf, left ankle, left foot, left toes, right midcalf, right ankle and right foot. Respiratory: Airway is patent Respiratory effort is even, unlabored, Respiratory pattern is regular, symmetrical, Breath sounds are diminished. GI: Abdomen is round Bowel sounds present X 4 quads. Abd is rigid X 4 quads. : Reports swelling to scrotal area. :. EENT: No signs and/or symptoms were reported regarding the EENT system. Derm: Musculoskeletal: Range of motion: intact in all extremities. 18:15 Reassessment: Patient appears in no apparent distress at this time. No changes from tw2 previously documented assessment. Patient and/or family updated on plan of care and expected duration. Pain level reassessed. Patient is alert, oriented x 3, equal unlabored respirations, skin warm/dry/pink. 19:00 Reassessment: RECD REPORT FROM ELDON GIANG. 77YO WM P/W EDEMA TO ABDOMEN, PELVIS AND BLE. bp STAFF UNABLE TO OBTAIN MD SENG NOTIFIED. DISPO PENDING. 21:26 [facility]. bp 22:22 Reassessment: EMS AT B/S, PT OSBALDO. bp Vital Signs: 16:50 BP 137 / 77; Pulse 86; Resp 24 S; Temp 98.4(O); Pulse Ox 100% on 4 lpm NC; Pain 0/10; iw 17:30 BP 139 / 78; Pulse 81; Resp 17; Pulse Ox 98% on 2 lpm NC; tw2 18:14 BP 127 / 69; Pulse 77; Resp 22; Pulse Ox 100% on 2 lpm NC; tw2 19:00 BP 128 / 69; Pulse 76; Resp 21; Pulse Ox 100% ; bp 21:00 BP 123 / 72; Pulse 82; Resp 21; Pulse Ox 100% ; bp 22:15 BP 105 / 45; Pulse 79; Resp 20; Pulse Ox 100% on NC; bp ED Course: 16:06 Patient arrived in ED. mr 16:07 Christian Valladares MD is Private Physician. mr 16:23 Placed in gown. Bed in low position. Side rails up X2. Adult w/ patient. Cardiac tw2 monitor on. Pulse ox on. NIBP on. 16:26 Marlen Kirkland, RN is Primary Nurse. hb 16:40 Inserted saline lock: 22 gauge in right antecubital area, using aseptic technique. tw2 Blood collected. 16:43 Paul Garcia MD is Attending Physician. maynor 16:48 Triage completed. iw 16:50 X-ray completed. Portable x-ray completed in exam room. Patient tolerated procedure ml well. 16:50 Arm band placed on. iw 16:52 XRAY Chest (1 view) In Process Unspecified. EDMS 17:01 CT Stone Protocol In Process Unspecified. EDMS 17:01 CT completed. Patient tolerated procedure well. Patient moved back from CT. nj 17:27 EKG done, by sterile technician. reviewed by Paul Garcia MD. sm3 18:58 Report given to PADMAJA Castaneda \T\ PADMAJA Middleton. tw2 19:02 Primary Nurse role handed off by Marlen Kirkland RN bp 19:02 Kane Ibarra, PADMAJA is Primary Nurse. bp 20:02 Hendrickson cath inserted, using sterile technique, 18 Fr., by ED staff, balloon inflated, to bp gravity drainage, returned tara urine. Patient tolerated well. 22:23 No provider procedures requiring assistance completed. Patient transferred, IV remains bp in place. Administered Medications: 20:30 Drug: Rocephin - (cefTRIAXone) 1 grams Route: IVPB; Infused Over: 30 mins; Site: right bp antecubital; 21:17 Follow up: IV Status: Completed infusion; IV Intake: 100ml bp 20:30 Drug: Lasix 40 mg Route: IVP; Site: right antecubital; bp 21:17 Follow up: Response: No adverse reaction bp 20:30 Drug: Xopenex 1.25 mg Route: Inhalation; bp 20:30 Drug: AtroVENT Aerosol 0.5 mg Route: Inhalation; bp 20:30 Drug: ProTONIX 40 mg Route: IVP; Site: right antecubital; bp 21:18 Follow up: Response: No adverse reaction bp Intake: 21:17 IV: 100ml; Total: 100ml. bp Outcome: 20:17 ER care complete, transfer ordered by MD. mcguire 22:23 Transferred by ground EMS to [facility], Transfer form completed. bp 22:23 Condition: stable 22:23 Instructed on the need for transfer. 22:24 Patient left the ED. bp Signatures: Dispatcher [employer] EDMS Paul Garcia MD MD cha Rivera, Maria mr Williams, Irene, RN Ale Hines Heather, RN RN hb Wise, Tara, RN RN tw2 Anuel Copeland Brian RN RN Merari Schwartz 3
[2018-04-04] MEDS ORDERED: IPRATROPIUM BROM 0.5MG/2.5ML ONE (20:20)
[2018-04-04] MEDS ORDERED: NA CHLORIDE 0.9% 100 ML IV ONE (20:21)
[2018-04-04] MEDS ORDERED: CEFTRIAXONE 1000 MG/VIAL ONE (20:21)
[2018-04-04] MEDS ORDERED: FUROSEMIDE 40 MG/4 ML VIAL ONE (20:21)
[2018-04-04] MEDS ORDERED: LEVALBUTEROL 1.25 MG/3 ML NEB ONE (20:21)
[2018-04-04] MEDS ORDERED: PANTOPRAZOLE 40 MG INJ ONE (20:21)
[2018-04-04 20:26] LABS: Urine Blood TRACE (NEG); Urine Glucose NEGATIVE (NEG); Urine Protein NEGATIVE (NEG); Urine pH 5.5 (5.0-7.0)
[2018-04-04 23:29] VITALS: O2SAT 100
[2018-04-04 23:32] VITALS: BP 105/45
[2018-04-04 23:36] VITALS: TEMP 98.2
--- NOTE | 2018-04-05 09:26 | EKG ---
Test Date: 2018-04-04 Test Time: 17:12:42 [facility]: RITU MEASUREMENT RESULTS: Intervals: Rate: 85 MD: QRSD: 106 QT: 404 QTc: 480 [place]: P: MD: QRS: 71 T: 158 INTERPRETIVE STATEMENTS: Atrial fibrillation with premature ventricular or aberrantly conducted complexes Cannot rule out Anterior infarct, age undetermined Abnormal ECG Compared to ECG 03/17/2018 10:03:52 Ventricular premature complex(es) now present Prolonged QT interval no longer present Myocardial infarct finding still present Electronically Signed On 04-05-18 09:24:14 CDT by Michi Perales
== END 2018-04-04 22:24 | disposition short-term general hospital (02) ==
LOC: ER 16:03
DX: N43.3 Hydrocele, unspecified (principal); I50.40 Unspecified combined systolic (congestive) and diastolic (congestive) heart failure; N19 Unspecified kidney failure; K74.60 Unspecified cirrhosis of liver; R18.8 Other ascites; I10 Essential (primary) hypertension; F41.9 Anxiety disorder, unspecified; Z95.810 Presence of automatic (implantable) cardiac defibrillator; F32.9 Major depressive disorder, single episode, unspecified; Z88.0 Allergy status to penicillin; Z79.01 Long term (current) use of anticoagulants; Z79.82 Long term (current) use of aspirin
CPT/HCPCS: 36415; 51702; 71045; 74176; 76377; 80048; 80076; 81003; 82140; 83690; 83735; 83880; 84484; 85025; 85610; 87086; 87088; 93005; 96365; 96375; 99285; C9113